=== PATIENT | female | born 1960 | race Caucasian/White ===

== ENCOUNTER → 2016-10-02 | Outpatient (CLI) | payer MEDICARE, OTHER ==
[2016-10-02 11:54] VITALS: BMI 31.6
== END | disposition home or self-care (01) ==
LOC: MNTWWP 08:50
PROVIDERS: ATTEND Family Medicine
DX: Z71.3 Dietary counseling and surveillance (principal); Z68.30 Body mass index [BMI] 30.0-30.9, adult
CPT/HCPCS: 97802

== ENCOUNTER → 2017-02-08 | Outpatient (CLI) | payer MEDICARE, OTHER ==
--- NOTE | 2017-02-08 14:02 | XR ---
EXAMINATION TYPE: XR chest 2V DATE OF EXAM: 02/08/2017 COMPARISON: 07/10/2016 TECHNIQUE: PA and lateral views submitted. HISTORY: Cough FINDINGS: The lungs are clear and there is no pneumothorax, pleural effusion, or focal pneumonia. Hyperinflat ion suggests COPD. Diffuse osteopenia noted. No overt failure. Hypertrophic change of the spine. IMPRESSION: 1. No acute process. Correlate for COPD.
== END | disposition home or self-care (01) ==
LOC: RADXRMAIN 12:57
PROVIDERS: ATTEND Physician Assistant
DX: R05 Cough (principal)
CPT/HCPCS: 71020

== ENCOUNTER → 2017-03-23 | Outpatient (CLI) | payer MEDICARE, OTHER ==
--- NOTE | 2017-03-26 09:38 | MM ---
Reason for exam: follow-up at short interval from prior study. Last mammogram was performed 1 year ago. History: Patient is postmenopausal and has history of other cancer at age 26. Benign left US cyst aspiration of the left breast, March 06, 2007. Took estrogen for 6 months beginning at age 44. Physical Findings: Nurse did not find any significant physical abnormalities on exam. MG 3D Diag Mammo W/Cad GINGER Bilateral CC and MLO view(s) were taken. Prior study comparison: March 20, 2016, bilateral MG 3d screening mammo w/cad. May 18, 2014, bilateral MG screening mammo w CAD. The breast tissue is extremely dense which could obscure a lesion on mammography. Previous mammotome biopsy in the left breast. No significant new findings when compared with previous films. These results were verbally communicated with the patient and result sheet given to the patient on 03/23/17. ASSESSMENT: Benign, BI-RAD 2 RECOMMENDATION: Routine screening mammogram of both breasts in 1 year.
== END | disposition home or self-care (01) ==
LOC: RADMAMWWP 08:16
PROVIDERS: ATTEND Family Medicine
DX: R92.8 Other abnormal and inconclusive findings on diagnostic imaging of breast (principal)
CPT/HCPCS: G0204; G0279

== ENCOUNTER 2017-03-31 06:11 | Inpatient (IN) | payer MEDICARE, MEDICAID ==
[2017-03-31] MEDS ORDERED: LORazepam 2 MG/ML SYRINGE IM STA (07:58)
[2017-03-31] MEDS ORDERED: diphenhydrAMINE 50 MG CAP PO STA (07:58)
--- NOTE | 2017-03-31 08:07 | ED ---
General Adult HPI - General Chief complaint: Psychiatric Symptoms Stated complaint: Mental Health Time Seen by Provider: 03/31/17 07:24 Source: patient, RN notes reviewed, old records reviewed Mode of arrival: ambulatory Limitations: altered mental status - History of Present Illness Initial comments: This is a 56-year-old female here for evaluation of psychiatric disease, patient has known bipolar disorder, states she is having manic event. Patient states she is taking all medications as prescribed, not doing any other illegal drugs or alcohol. States she has not slept in days, she is very agitated and fidgety, states she is seeing people who aren't there, she does state is following up with [facility] as directed and a been trying to an active plan at this at this point is not working. Patient is not homicidal or suicidal. - Related Data Home Medications Medication Instructions Recorded Confirmed fentaNYL 50MCG/HR PATCH [Duragesic 1 patch TRANSDERM Q72H 02/10/16 07/09/16 50MCG/HR] oxyCODONE-APAP 10-325MG [Percocet 1 tab PO QID PRN 02/10/16 07/09/16 10-325 mg] ALPRAZolam [Xanax] 0.5 mg PO TID PRN 07/09/16 07/09/16 ALPRAZolam [Xanax] 1 mg PO DAILY@1200 07/09/16 07/09/16 Lurasidone HCl [Latuda] 20 mg PO PC-SUPPER 07/09/16 07/09/16 OXcarbazepine [Trileptal] 600 mg PO BID 07/09/16 07/09/16 Simvastatin [Zocor] 20 mg PO HS 07/09/16 07/09/16 traZODone HCL [Desyrel] 250 mg PO HS 07/09/16 07/09/16 Previous Rx's Medication Instructions Recorded Escitalopram [Lexapro] 20 mg PO DAILY@1200 #30 tab 02/16/16 Loratadine [Claritin] 10 mg PO DAILY #30 tab 02/16/16 Lurasidone [Latuda] 80 mg PO PC-SUPPER #30 tab 02/16/16 Famotidine [Pepcid] 20 mg PO BID tab 07/11/16 Nicotine 14Mg/24Hr Patch [Habitrol] 1 patch TRANSDERM DAILY #30 patch 07/11/16 Allergies Allergy/AdvReac Type Severity Reaction Status Date / Time No Known Allergies Allergy Verified 03/31/17 06:18 Review of Systems ROS Statement: Those systems with pertinent positive or pertinent negative responses have been documented in the HPI. ROS Other: All systems not noted in ROS Statement are negative. Past Medical History Past Medical History: Asthma, Hyperlipidemia Additional Past Medical History / Comment(s): MRSA, BIPOLAR, PANIC DISORDER, BACK PAIN, ARTHRITIS, HEAD INJURY, vertigo, bradycardia, pituatary tumor (benign ) "couple of years ago. History of Any Multi-Drug Resistant Organisms: MRSA Date of last positivie culture/infection: 2014 MDRO Source:: FACE/EARS Past Surgical History: Adenoidectomy, Section, Tonsillectomy Additional Past Surgical History / Comment(s): D&C, EYE, WRIST RIGHT Past Anesthesia/Blood Transfusion Reactions: No Reported Reaction Past Psychological History: Anxiety, Bipolar, Depression, Panic Disorder Smoking Status: Current every day smoker Past Alcohol Use History: None Reported Past Drug Use History: None Reported - Past Family History Mother History Unknown: Yes General Exam Limitations: altered mental status General appearance: alert, in no apparent distress Head exam: Present: atraumatic, normocephalic, normal inspection Eye exam: Present: normal appearance, PERRL, EOMI. Absent: scleral icterus, conjunctival injection, periorbital swelling ENT exam: Present: normal exam, mucous membranes moist Neck exam: Present: normal inspection. Absent: tenderness, meningismus, lymphadenopathy Respiratory exam: Present: normal lung sounds bilaterally. Absent: respiratory distress, wheezes, rales, rhonchi, stridor Cardiovascular Exam: Present: regular rate, normal rhythm, normal heart sounds. Absent: systolic murmur, diastolic murmur, rubs, gallop, clicks GI/Abdominal exam: Present: soft, normal bowel sounds. Absent: distended, tenderness, guarding, rebound, rigid Extremities exam: Present: normal inspection, full ROM, normal capillary refill. Absent: tenderness, pedal edema, joint swelling, calf tenderness Back exam: Present: normal inspection Neurological exam: Present: alert, oriented X3, CN II-XII intact Psychiatric exam: Present: normal affect, normal mood Skin exam: Present: warm, dry, intact, normal color. Absent: rash Course Vital Signs 03/31/17 06:15 Temperature 98.7 F Pulse Rate 84 Respiratory 18 Rate Blood Pressure 146/71 O2 Sat by Pulse 95 Oximetry - Reevaluation(s) Reevaluation #1: 03/31/17 08:07 Patient's medically clear for psychiatric Medical Decision Making - Medical Decision Making 56 female seen and evaluated with psychiatry, will admit for psychiatric evaluation and treatment Disposition Clinical Impression: Psychosis, Acute psychosis, Bipolar disorder, Elham (monopolar) single episode or unspecified Disposition: ADMITTED IP TO THIS [facility] Condition: Fair Referrals: Pa Sanders MD [Primary Care Provider] - 1-2 days
[2017-03-31 11:32] LABS: Basophils % (A) 1 %; CH 30.9; CHCM 33.7; Eosinophils # (A) 0.2 k/uL (0-0.7); Eosinophils % (A) 3 %; HCT 42.7 % (34.0-46.0); HDW 2.52; HGB 14.6 gm/dL (11.4-16.0); Luc # (Auto) 0.18; Luc % (Auto) 3; Lymphocytes # (A) 2.3 k/uL (1.0-4.8); Lymphocytes % (A) 36 %; MCH 31.5 pg (25.0-35.0); MCHC 34.2 g/dL (31.0-37.0); Mean Platelet Volume 6.5; Monocytes # (A) 0.5 k/uL (0-1.0); Monocytes % (A) 7 %; Neutrophils # (A) 3.2 k/uL (1.3-7.7); Neutrophils % (A) 50 %; RBC 4.63 m/uL (3.80-5.40); RDW 12.7 % (11.5-15.5); WBC 6.4 k/uL (3.8-10.6); WBC (Perox) 6.63
[2017-03-31 11:58] LABS: MCV 92.1 fL (80.0-100.0)
[2017-03-31 12:01] LABS: ALT 46 U/L (9-52); AST 39 U/L (14-36); Alkaline Phosphatase 62 U/L (38-126); Anion Gap 7 mmol/L; Blood Urea Nitrogen 16 mg/dL (7-17); Calcium 9.4 mg/dL (8.4-10.2); Carbon Dioxide 27 mmol/L (22-30); Chloride 105 mmol/L (98-107); Glucose 95 mg/dL (74-99); Non-African American GFR(MDRD) >60 (>60 ml/min/1.73 sqM); Potassium 3.6 mmol/L (3.5-5.1); Sodium 139 mmol/L (137-145); Total Bilirubin 0.4 mg/dL (0.2-1.3); Total Protein 5.7 g/dL (6.3-8.2)
[2017-03-31] MEDS ORDERED: MAG HYDROX/AL HYDROX/SIMETH 30 ML CUP PO PRN (12:57)
[2017-03-31] MEDS ORDERED: ACETAMINOPHEN TAB 325 MG TAB PO PRN (12:57)
[2017-03-31] MEDS ORDERED: MAGNESIUM HYDROXIDE 2,400 MG/10 ML CUP PO PRN (12:57)
[2017-03-31] MEDS ORDERED: traZODone HCL 100 MG TAB PO SCH (21:00)
[2017-03-31] MEDS: OXcarbazepine 300 MG TAB PO SCH (22:51)
[2017-03-31] MEDS: HYDROcodone/APAP 5-325MG 1 EACH TAB PO PRN (22:51)
[2017-04-01] MEDS: OXcarbazepine 300 MG TAB PO SCH ×2 (11:06→20:53)
[2017-04-01] MEDS: ESCITALOPRAM 10 MG TAB PO SCH (11:06)
[2017-04-01] MEDS: LURASIDONE 40 MG TAB PO SCH (11:06)
[2017-04-01] MEDS: NICOTINE 14MG/24HR PATCH TRANSDERM SCH (11:06)
[2017-04-01] MEDS: PANTOPRAZOLE 40 MG TABLET PO SCH (11:07)
[2017-04-01] MEDS: ATORVASTATIN 10 MG TAB PO SCH (11:07)
[2017-04-01] MEDS: HYDROcodone/APAP 5-325MG 1 EACH TAB PO PRN (11:07)
--- NOTE | 2017-04-01 17:49 | P.CONS ---
History of Present Illness - Reason for Consult Consult date: 04/01/17 Advice regarding skin lesions - History of Present Illness This 56-year-old woman with a past medical history of COPD pneumonia and bipolar was admitted for psych evaluation. Patient had extensive history of polysubstance abuse. Patient is complaining of infected areas of the right foot. There is no history of fever rigors or chills. Patient has been followed by Dr. Moon Sanders In the preceding. Review of Systems REVIEW OF SYSTEMS: ENT: No diminished vision or hearing. CARDIOVASCULAR: Mentioned earlier. RESPIRATORY: As mentioned earlier. GI: No nauscea, vomiting or diarrhea. : No dysuria or retention. NERVOUS SYSTEM: No numbness or weakness. ALLERGY/IMMUNOLOGY: No asthma or hay fever. MUSCULOSKELETAL: As mentioned earlier. HEMATOLOGY/ONCOLOGY: No history of anemia. ENDOCRINE: No history of diabetes or hypothyroidism. CONSTITUTIONAL: As mentioned earlier. DERMATOLOGY: Mentioned PSYCHIATRY: Mentioned earlier. RHEUMATOLOGY: Negative. Past Medical History Past Medical History: Asthma, Hyperlipidemia Additional Past Medical History / Comment(s): MRSA, BIPOLAR, PANIC DISORDER, BACK PAIN, ARTHRITIS, HEAD INJURY, vertigo, bradycardia, pituatary tumor (benign ) "couple of years ago. History of Any Multi-Drug Resistant Organisms: MRSA Year Discovered:: 2014 MDRO Source:: FACE/EARS Past Surgical History: Adenoidectomy, Section, Tonsillectomy Additional Past Surgical History / Comment(s): D&C, EYE, WRIST RIGHT Past Anesthesia/Blood Transfusion Reactions: No Reported Reaction Past Psychological History: Anxiety, Bipolar, Depression, Panic Disorder Smoking Status: Current every day smoker Past Alcohol Use History: None Reported Past Drug Use History: None Reported - Past Family History Mother History Unknown: Yes Medications and Allergies Home Medications Medication Instructions Recorded Confirmed Type fentaNYL 50MCG/HR PATCH [Duragesic 1 patch TRANSDERM Q72H 02/10/16 03/31/17 History 50MCG/HR] oxyCODONE-APAP 10-325MG [Percocet 1 tab PO QID 02/10/16 03/31/17 History 10-325 mg] ALPRAZolam [Xanax] 1 mg PO TID 07/09/16 03/31/17 History OXcarbazepine [Trileptal] 600 mg PO BID 07/09/16 03/31/17 History Simvastatin [Zocor] 20 mg PO DAILY 07/09/16 03/31/17 History traZODone HCL [Desyrel] 300 mg PO HS 07/09/16 03/31/17 History Escitalopram [Lexapro] 10 mg PO DAILY 03/31/17 03/31/17 History Lurasidone HCl [Latuda] 120 mg PO DAILY 03/31/17 03/31/17 History Omeprazole 20 mg PO DAILY 03/31/17 03/31/17 History Allergies Allergy/AdvReac Type Severity Reaction Status Date / Time No Known Allergies Allergy Verified 03/31/17 06:18 Physical Exam Vitals: Vital Signs Pulse Resp BP 04/01/17 11:12 70 18 109/66 03/31/17 22:53 68 126/66 03/31/17 21:51 77 116/76 Intake and Output 04/01/17 04/01/17 04/01/17 06:59 14:59 22:59 Other: Weight 70 kg Patient Weight 04/02/17 06:59 Weight 70 kg On exam, alert and oriented x3. HEENT: Conjunctivae normal. eyes normal. NECK: No JVD. No thyroid enlargement. No LNs CARDIOVASCULAR: S1, S2 muffled. No murmur RESPIRATION: Breath sounds diminished in the bases. No rhonchi or crackles. No bronchial breathing. ABDOMEN: Soft, nontender . No guarding. no masses palpable. No ascites, No hepatosplenomegaly.Bowel sounds heard. LEGS: No edema. no swelling NERVOUS SYSTEM: Cranial N 2-12 grossly normal. Moves all 4 limbs. No focal deficits. No sensory deficit. No signs of cerebellar dysfucntion. Skin: Rash with superficial ulcers right dorsum and the left foot Joints: No active swelling. No inflammation. Lymphatic system. No LN neck axilla or groin. Results CBC & Chem 7: 03/31/17 11:19 03/31/17 11:19 Assessment and Plan Plan: Assessment 1. Acute cellulitis of the right foot 2. Polysubstance abuse and withdrawals 3. For psych evaluation 54. COPD 5. Chronic back pain DJD history of bipolar anxiety depression Hyperlipidemia Plan In this 56-year-old woman was admitted for psych evaluation at this time I recommend to continue current medications. Also recommend short course of Bactrim. Continue the rest of the medications. We'll be the abnormal labs. Patient may be asked to follow with the primary physician. Thank you for letting us take care of this patient
[2017-04-01] MEDS: SULFAMETHOX-TMP 800-160MG 1 EACH TAB PO SCH (19:10)
[2017-04-01] MEDS: traZODone HCL 100 MG TAB PO SCH (20:53)
[2017-04-02] MEDS: SULFAMETHOX-TMP 800-160MG 1 EACH TAB PO SCH (08:38)
[2017-04-02] MEDS: NICOTINE 14MG/24HR PATCH TRANSDERM SCH (08:38)
[2017-04-02] MEDS: PANTOPRAZOLE 40 MG TABLET PO SCH (08:38)
[2017-04-02] MEDS: ESCITALOPRAM 10 MG TAB PO SCH (08:39)
[2017-04-02] MEDS: OXcarbazepine 300 MG TAB PO SCH ×2 (08:39→22:15)
[2017-04-02] MEDS: LURASIDONE 40 MG TAB PO SCH (08:39)
[2017-04-02] MEDS: ATORVASTATIN 10 MG TAB PO SCH (08:39)
--- NOTE | 2017-04-02 09:52 | HP ---
DATE OF SERVICE: 04/01/2017 IDENTIFYING DATA: This patient is a 56-year-old female who is admitted to the Mental Health Unit through the Emergency Room for symptoms of agitation and reported suicidal ideation. HISTORY OF PRESENT ILLNESS: The patient states she has a history of bipolar disorder. She used cocaine late Sunday night into early Sunday morning and believed it triggered a manic episode. She states that she has not been sleeping. Her appetite has been poor. She states that her mind has been "scattered." She has been experiencing excessive amount of irritability. In the emergency room last evening, she was irritable and demonstrated bizarre behavior. The patient reports she was talking to individuals that were not there. She could not seem them or hear them but believed they were there and became more agitated when there was no response. This morning, she reports feeling tired. Her energy is low. She presented to the hospital with suicidal thoughts with a plan of overdosing but states she feels safe in the hospital now. No thoughts of harming others. She is endorsing no current auditory or visual hallucinations. She is endorsing no specific delusions at this time. She feels safe. She describes a long history of anxiety, stating "people bother me." When asked if she has panic attacks, she says yes. She will have episodes where she will be fearful and jittery. She is on prescribed psychotropic medications as noted below. She reports she has been compliant with those. She feels that this was triggered by her recent use of cocaine. She reports having no firearms at home. PAST PSYCHIATRIC HISTORY: She has had numerous inpatient psychiatric admissions. This is her fifth since 2013 in terms of suicide attempt, she states "too many to count." She states that she has had several overdoses and has tried to harm herself in traffic. She works with Dr. Mitlon for medication management and sees a therapist with [facility]. The is currently prescribed Trileptal 600 mg twice daily, Latuda 120 mg daily, Trazodone 300 mg at bedtime, Lexapro 10 mg daily. She has been on numerous other psychotropics in the past. She cannot recall a list at this time. She also states she is prescribed Xanax 1 mg 3 times daily. PAST MEDICAL HISTORY: GERD. She takes Protonix. Hyperlipidemia which is treated with Lipitor. She states that she has chronic pain and is on fentanyl and oxycodone. ALLERGIES: No known drug allergies. CHEMICAL DEPENDENCY HISTORY: Cocaine use disorder. She has been struggling with this for numerous years. She states it is her drug of choice. She used this is the form of crack Sunday night into Sunday morning. She did previously have a history of marijuana use but reports no recent marijuana use. No use of alcohol reported or any other illicit drugs. She has been in rehab approximately 5 times in the past. FAMILY PSYCHIATRIC HISTORY: A grandfather committed suicide, a cousin committed suicide, another cousin is known to have bipolar disorder. FAMILY CHEMICAL DEPENDENCY HISTORY: Unknown. LEGAL HISTORY: She has recently gone through [facility] for stealing a pack of hot dogs last year in May. She states she is currently on a reporting probation and she checks in every 2 weeks. SOCIAL HISTORY: The patient is 56 years old, she is . She has one adult daughter. The patient lives alone. She is on a disability income. She graduated high school. 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 No history of service. She has 2 brothers. She is originally from the [facility]. ABUSE HISTORY: Unknown. MENTAL STATUS EXAM: The patient is a disheveled female appearing her stated age. Hygiene fair. She is dressed in her own clothing. A pajama top and bottom. Eye contact is intermittent. Speech is fluent, spontaneous. She is verbose but easily directed. She maintains a bland affect. She reports feeling tired, sad, and irritable. She describes frequent anxiety. She demonstrates no verbal or physical aggressiveness. Thought process can be circumstantial. She demonstrates no tangential thinking, loose associations or flight of ideas today. She is endorsing no current auditory visual hallucinations are specific delusions. There is no overt evidence of psychosis at this time. She does not appear overtly manic as she is seated in her chair during our session. She is oriented to person, place, month, year. She names the day of the week incorrectly as Sunday. She is able to spell world forwards and backwards. No abnormal involuntary movements observed. STRENGTHS: Housing, income. WEAKNESSES: Ongoing use of cocaine, intellect average. IMPRESSION: 1. Bipolar 1 disorder, most recent depressed, cocaine use disorder, rule out substance induced mood symptoms, history of cannabis use disorder in reported remission. 2. Reported chronic pain, hyperlipidemia, gastroesophageal reflux disease. 3. Psychosocial dysfunction due to recent use of cocaine. PLAN: The patient has been admitted to the mental health unit. She is here voluntarily. We reviewed her presenting symptoms and medications options. We decided to continue her on the outpatient psychotropic medication regimen including Latuda 120 mg daily, Trileptal 600 mg twice daily. Her Trazodone will be reduced to 100 mg at bedtime, continue Lexapro 10 mg daily. We will use Ativan as needed in lieu of Xanax. We did reduce her opiates to the mental health unit protocol. We will monitor her for safety. Encourage her participate in the milieu. She will be seen by Internal Medicine for routine history and physical. Social Work will meet with the patient to complete a psychosocial assessment and begin discharge planning. Vital signs reviewed. Trileptal level was ordered. MTDD
[2017-04-02 10:04] LABS: Appearance,Urine Cloudy (Clear); Bacteria,Urine Rare /hpf; Bilirubin,Urine Negative (Negative); Glucose,Urine (UA) Negative (Negative); Ketones,Urine Negative (Negative); Leukocyte Esterase,Urine Small (Negative); Mucus,Urine Rare /hpf; Nitrite,Urine Negative (Negative); PH, Urine 6.5 (5.0-8.0); Particle Count 9635; Protein,Urine Negative (Negative); RBC,Urine 2 /hpf (0-5); Specific Gravity,Urine 1.006 (1.001-1.035); Squamous Epithelial Cell,Urine 16 /hpf (0-4); UA Billing (MACRO vs. MICRO) MICRO; Urobilinogen,Urine <2.0 mg/dL (<2.0); WBC,Urine 5 /hpf (0-5)
[2017-04-02] MEDS: LORazepam 1 MG TAB PO PRN ×2 (10:34→16:31)
[2017-04-02] MEDS: HYDROcodone/APAP 5-325MG 1 EACH TAB PO PRN ×2 (10:35→16:31)
[2017-04-02] MEDS: MULTIVITAMINS, THERA 1 EACH TAB PO SCH (12:27)
--- NOTE | 2017-04-02 19:07 | PN ---
DATE OF SERVICE: 04/02/17 CHIEF COMPLAINT: The patient had relapsed into using cocaine. She used for about 12 hours straight one week ago. After that, she started having increased manic symptoms with decreased need for sleep, irritability, racing thoughts, bizarre behavior and impulsivity. INTERVAL HISTORY: The patient has been doing fair. She had a quiet evening last night. She said that she slept for about six hours last night with some broken sleep. She has been up and about today. Overall, vital signs have been stable without any increase in blood pressure or pulse. She has not shown any significant signs of substance withdrawal. She did not attend groups yesterday but did attend group today. She says she is feeling much better today than she was yesterday. She feels that her thoughts are clear and she is functioning better. She notes that two weeks ago when she saw her outpatient psychiatrist, Dr. Milton, he had increased her Latuda to 120 mg a day. Other medications were left the same. It is noted that when she was hospitalized her in 2016, there was some concern that Latuda at 120 mg a day may be causing EPS with restlessness. The patient states that she has not had restlessness since the current increase. Her other medications are essentially the same as they had been . the patient reports today that her thoughts are clear. She feels that she is not having significant manic symptoms at present. She has not had change in her general health. She tolerates psychotropic medications. MENTAL STATUS: The patient was dressed in Pajamas. Eye contact was fair. She sat in slumped posture. Psychomotor activity was slow. Speech was monotone. She answered questions with direct responses. Her thoughts were clear. Her affect was somewhat blunted. She did smile a little. Her mood was reserved. She did not appear to be significantly distress. ASSESSMENT AND PLAN: I will continue current diagnosis and treatment plan. We will continue to make efforts to engage the patient in individual and group therapeutic activities. We will continue psychotropic medications the same including Lexapro 10 mg a day, Latuda 120 mg a day, Trileptal 600 mg twice a day. Trazodone 100 mg at bedtime and Ativan 1 mg three times a day as needed. She is also on Hydrocodone 5 mg three times a day as needed. Her only medication concern at present was that her Trazodone dose had been reduced from 300 mg that she was taking at home down to 100 mg a day. We discussed that she seemed to be sleeping fairly well in spite of that reduction. We discussed the importance of trying to keep her medications simplified as much as possible given that she is on a complicated set of psychotropic medications. We discussed discharge planning issues. We will continue to focus on stabilization and discharge planning. ALIA
[2017-04-02] MEDS: traZODone HCL 100 MG TAB PO SCH (22:15)
[2017-04-03] MEDS: HYDROcodone/APAP 5-325MG 1 EACH TAB PO PRN ×3 (02:55→21:15)
[2017-04-03] MEDS: LORazepam 1 MG TAB PO PRN ×2 (02:56→08:42)
[2017-04-03] MEDS: LURASIDONE 40 MG TAB PO SCH (08:42)
[2017-04-03] MEDS: SULFAMETHOX-TMP 800-160MG 1 EACH TAB PO SCH (08:42)
[2017-04-03] MEDS: ESCITALOPRAM 10 MG TAB PO SCH (08:42)
[2017-04-03] MEDS: ATORVASTATIN 10 MG TAB PO SCH (08:42)
[2017-04-03] MEDS: NICOTINE 14MG/24HR PATCH TRANSDERM SCH (08:42)
[2017-04-03] MEDS: OXcarbazepine 300 MG TAB PO SCH ×2 (08:42→21:14)
[2017-04-03] MEDS: PANTOPRAZOLE 40 MG TABLET PO SCH (08:42)
--- NOTE | 2017-04-03 11:22 | P.PN ---
Subjective Principal diagnosis: Reassessing cellulitis to right foot patient states improvement of swelling mild erythema. Patient noted to be wheezing albuterol and Spiriva started Objective - Vital Signs Vital signs: Vital Signs Temp 97.6 F 04/03/17 07:17 Pulse 64 04/03/17 08:47 Resp 16 04/03/17 08:47 BP 112/72 04/03/17 08:47 Pulse Ox 96 03/31/17 13:06 - Constitutional General appearance: Present: mild distress - EENT Eyes: Present: PERRLA Ears: bilateral: normal - Neck Neck: Present: normal ROM - Respiratory Respiratory: right: wheezing - Cardiovascular Rhythm: regular - Gastrointestinal General gastrointestinal: Present: soft - Integumentary Integumentary Comment(s): Mild erythema right foot - Neurologic Neurologic: Present: CNII-XII intact - Musculoskeletal Musculoskeletal: Present: gait normal - Labs CBC & Chem 7: 03/31/17 11:19 03/31/17 11:19 Assessment and Plan Plan: Assessment Cellulitis right foot polysubstance abuse and withdrawals COPD chronic back pain opioid dependence History of bipolar anxiety/depression Hyperlipidemia Plan Continue Bactrim for cellulitis Albuterol and Spiriva initiated COPD
[2017-04-03] MEDS: MULTIVITAMINS, THERA 1 EACH TAB PO SCH (12:55)
[2017-04-03] MEDS: POLYETHYLENE GLYCOL 3350 17 GM POWD.PACK PO SCH (14:34)
--- NOTE | 2017-04-03 15:05 | PN ---
DATE OF SERVICE: 04/03/2017 CHIEF COMPLAINT: The patient had relapse into using cocaine. She used for about 12 hours straight one week ago. After that, she started having increased manic symptoms with decreased need for sleep, irritability, racing thoughts, bizarre behavior and impulsivity. INTERVAL HISTORY: Patient has been doing fair. She had a quiet evening last night. She slept well. Today, she has been up and about. She says she is tired today. She feels a little down and slowed down. She has been out, though , she has not done so much for herself in terms of self care. Yesterday, she was brighter, more active and she had much better self-care. Today she said she is just tired and slowed down. She has not had change in her general health. She tolerates the psychotropic medications. MENTAL STATUS: Patient was dressed in pajamas, eye contact fair, psychomotor activity slowed. She sat in a slumped posture, speech was monotone. She had a listless manner. Her affect was blunted. Mood reserved. She seemed somewhat distressed. ASSESSMENT: I will continue the current diagnosis and treatment plan. It is noteworthy that the patient presents this afternoon, somewhat in the manner as I saw her earlier in the day yesterday. On the other hand, yesterday as the day went on, she seemed to show improvement. I had discussed treatment issues with the patient. At this point, I will reduce her Ativan to 0.5 mg 3 times a day. Other psychotropic medications will continue the same. Will continue to focus on stabilization and discharge planning. ALIA
[2017-04-03] MEDS: LORazepam 0.5 MG TAB PO PRN (16:30)
[2017-04-03] MEDS: ALBUTEROL INHALER 60 PUFF/8 GM INHALER INHALATION PRN (19:30)
[2017-04-03] MEDS: traZODone HCL 100 MG TAB PO SCH (21:14)
[2017-04-04] MEDS: LORazepam 0.5 MG TAB PO PRN ×3 (00:37→16:38)
[2017-04-04] MEDS: OXcarbazepine 300 MG TAB PO SCH ×2 (08:57→20:59)
[2017-04-04] MEDS: PANTOPRAZOLE 40 MG TABLET PO SCH (08:58)
[2017-04-04] MEDS: ESCITALOPRAM 10 MG TAB PO SCH (08:58)
[2017-04-04] MEDS: NICOTINE 14MG/24HR PATCH TRANSDERM SCH (08:58)
[2017-04-04] MEDS: ATORVASTATIN 10 MG TAB PO SCH (08:58)
[2017-04-04] MEDS: LURASIDONE 40 MG TAB PO SCH (08:58)
[2017-04-04] MEDS: POLYETHYLENE GLYCOL 3350 17 GM POWD.PACK PO SCH (08:59)
[2017-04-04] MEDS: SULFAMETHOX-TMP 800-160MG 1 EACH TAB PO SCH (08:59)
[2017-04-04] MEDS: TIOTROPIUM 18 MCG/PUFF INHALER INHALATION SCH (09:01)
[2017-04-04] MEDS: HYDROcodone/APAP 5-325MG 1 EACH TAB PO PRN ×2 (09:04→16:38)
[2017-04-04] MEDS: MULTIVITAMINS, THERA 1 EACH TAB PO SCH (13:00)
[2017-04-04] MEDS: ALBUTEROL INHALER 60 PUFF/8 GM INHALER INHALATION PRN ×2 (14:02→21:04)
--- NOTE | 2017-04-04 14:48 | PN ---
DATE OF SERVICE: 04/04/2017 CHIEF COMPLAINT: The patient had relapse into using cocaine. She used for about 12 hours straight one week prior to admission. After that she started having increased manic symptoms with decreased need for sleep, irritability, racing thoughts, bizarre behavior and impulsivity. INTERVAL HISTORY: The patient has been doing fairly well. She was down in her mood yesterday. She was more withdrawn. She was not making effort to attend groups. She was isolating. She slept well last night. Today she is up and dressed. She reports doing much better in her mood. She acknowledges that she tends to have mood swings with ups and downs. She cannot often identify what can cause change in her mood. In regards to substance use issues the patient said that she had been doing fairly well and was making progress due to the requirements of drug court. She said that unfortunately somewhat had made a concerted effort to encourage her to use, which set her off on her 12 hour binge. She notes clear thoughts today. She feels her mood is in a normal range. She is not having hypomanic or manic symptoms. She does not feel down, depressed or anxious. 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 She has not had change in her general health. She tolerates her psychotropic medications. MENTAL STATUS EXAM: Patient gave good eye contact. Psychomotor activity and speech were normal. Her thoughts were clear. She was spontaneous and interactive. Her affect was in a reasonable range. Her mood was even. She did not appear to be distressed. ASSESSMENT: I will continue the current diagnosis and treatment plan. I will continue psychotropic medications the same. Patient requests that when she is discharged that she return to using Xanax rather than the Ativan. I had an extensive discussion with the patient regarding her use of benzodiazepines in general. I strongly encouraged her to work with her psychiatrist to move away from benzodiazepines. There are significant risks for her not only including motor and memory impairment which are the most common side effects from benzodiazepines but also their use significantly increases her risk for relapse to other abusive substances. In addition, she should moves towards getting on a program to eventually get off opioid pain medications as well. The same issues are involved with opioids as with the benzodiazepines. She has a high likelihood of being able to manage pain issues with nonopioid interventions though she would likely need to have some fairly focused effort and support in alternative treatment options. Again, the continued use of opioids put her at high risk for relapse to abusive substances. ALIA
[2017-04-04] MEDS: traZODone HCL 100 MG TAB PO SCH (20:59)
[2017-04-05] MEDS: LORazepam 0.5 MG TAB PO PRN ×2 (02:35→10:27)
[2017-04-05] MEDS: HYDROcodone/APAP 5-325MG 1 EACH TAB PO PRN (02:35)
[2017-04-05 02:40] VITALS: TEMP 97.5
[2017-04-05] MEDS: ESCITALOPRAM 10 MG TAB PO SCH (08:52)
[2017-04-05] MEDS: NICOTINE 14MG/24HR PATCH TRANSDERM SCH (08:52)
[2017-04-05] MEDS: PANTOPRAZOLE 40 MG TABLET PO SCH (08:52)
[2017-04-05] MEDS: OXcarbazepine 300 MG TAB PO SCH (08:52)
[2017-04-05] MEDS: ATORVASTATIN 10 MG TAB PO SCH (08:53)
[2017-04-05] MEDS: POLYETHYLENE GLYCOL 3350 17 GM POWD.PACK PO SCH (08:53)
[2017-04-05] MEDS: SULFAMETHOX-TMP 800-160MG 1 EACH TAB PO SCH (08:53)
[2017-04-05 09:00] VITALS: BP 112/64; PULSE 62; RESP 16
[2017-04-05] MEDS: TIOTROPIUM 18 MCG/PUFF INHALER INHALATION SCH (09:00)
[2017-04-05] MEDS: ALBUTEROL INHALER 60 PUFF/8 GM INHALER INHALATION PRN (09:00)
[2017-04-05] MEDS: LURASIDONE 40 MG TAB PO SCH (10:27)
[2017-04-05] MEDS: MULTIVITAMINS, THERA 1 EACH TAB PO SCH (12:23)
--- NOTE | 2017-04-06 22:24 | DS ---
DATE OF ADMISSION: 03/31/2017 DATE OF ADMISSION: 04/05/2017 ADMISSION AND DISCHARGE DIAGNOSES: 1. Bipolar affective disorder, most recent depressed. 2. Cocaine use disorder. 3. Rule out substance-induced mood symptoms. 4. History of cannabis use disorder, in reported remission. 5. Chronic pain. 6. Hyperlipidemia. 7. Gastroesophageal reflux disease. HISTORY OF PRESENTING ILLNESS: The patient had relapsed into using cocaine for about a 12-hour period 5 days prior to admission. She started having increased manic symptoms with decreased need for sleep, irritability, racing thoughts, bizarre behavior and impulsivity. On admission she had mixed symptoms of carol and depression. She presented to the emergency room with irritability and demonstrated bizarre behavior. She was responding to internal stimuli. She had periods of depressed mood with thoughts of suicide. This was her fifth psychiatric hospitalization since 2012. Current medications included Trileptal, Latuda, Trazodone and Lexapro. She had just seen her outpatient psychiatrist, Dr. Milton, who had increased her Latuda to 120 mg a day. She was admitted for further evaluation. PAST MEDICAL HISTORY: As per medical consultation of Dr. Garcia. MENTAL STATUS EXAM: The patient was disheveled. Hygiene fair. Eye contact intermittent. Speech was fluent and spontaneous. She was verbose, though easily directed. Affect was bland. Thought process was circumstantial. There was no tangential thinking, loose association or flight of ideas. There was no overt evidence of psychosis. She was not appearing overtly manic. Orientation was fair. PHYSICAL EXAM: As per medical consultation of Dr. Garcia. COURSE OF HOSPITALIZATION: Patient was admitted for comprehensive medical, psychiatric and psychosocial evaluation. Patient was engaged in individual and group therapeutic activities. She was continued on outpatient medications, including Latuda 120 mg a day, Lexapro 10 mg a day, Trileptal 600 mg twice a day and Desyrel. Her Desyrel dose was reduced to 100 mg at bedtime. She had previously been on Xanax. She was switched to Ativan 0.5 mg 3 times a day p.r.n. The dose was ultimately reduced to b.i.d. p.r.n. Given that she had just had her Latuda increased, the decision was made to continue her on that dose and see if she shows adequate response. During her hospitalization, the patient did fairly well. She had some days where she did not function too well; she would not get dressed; she would isolate. She did not attend groups. She did not socialize much with others. Generally she would come out in the day area and seem to wander without much purpose. Other days she was able to organize herself to get dressed. That seemed to be a signal for how she was functioning in other ways. During those days, her mood seemed to improve. She would go to groups. She would be more social with others. During her hospitalization, she did not demonstrate any clear indication of psychotic symptoms. She had a few periods where she showed some manic symptoms with her being talkative and mildly energized, though these periods were brief. She gradually seemed to improve from depression, which was her more predominant mood during the early part of her hospitalization. As her hospitalization progressed, she was able to actively engage in discharge planning. She was concerned about her status, given that she is followed under the drug court, and understands that she would be drug-tested. She was concerned about the issue of relapse. Patient was able to talk about her relapse. She slept fairly well through most of her hospitalization. She did not show significant withdrawal issues. It was noted that she had been on Latuda at the 120 mg dose for approximately 2 weeks. Medical records noted that in 2016 she was on Latuda 120 mg and it was felt that she was having EPS symptoms with restlessness. She did not show that issue during this stay. She did not seem to have symptoms of EPS. She showed no signs of tremor, abnormal movements or rigidity. She did not demonstrate signs of tardive dyskinesia. Throughout her hospitalization she remained stable in regards to general health issues. She cooperated in working on discharge planning. CONDITION AT DISCHARGE: Patient was stable. Mood was improved. She had a better outlook. She was not showing signs of hypomania, carol or depression. She described motivation to follow through with her psychiatric care and to remain abstinent from abusive substances. RECOMMENDATIONS AND FOLLOWUP: The patient is discharged to home. Discharge medications include: 1. Lexapro 10 mg a day. 2. Latuda 120 mg a day. 3. Trileptal 600 mg twice a day. 4. Ativan 0.5 mg twice a day. 5. Trazodone 100 mg at bedtime. She was directed to continue home medications, including Spiriva 1 puff daily, Ventolin inhaler 2 puffs 4 times a day p.r.n., using a 14 mg nicotine patch. She was also started on Bactrim DS and was to continue one daily for 7 days. It was indicated that she would also continue Percocet 10 mg one 4 times a day, fentanyl patch 50 mcg every 3 days, Zocor 20 mg a day, omeprazole 20 mg a day. I had an extensive discussion with the patient to seek referral for pain management to taper completely off opioid pain medications. In addition, my recommendation was for her to work with her outpatient psychiatrist to discontinue use of all benzodiazepines as well. She has a follow-up appointment with [facility] on 04/06 at 11 a.m. and with [facility] 04/06/2017 at 10:20 a.m. She was referred back to her primary care physician, Dr. Sanders, to be seen within 2 days. ALIA
== END 2017-04-05 12:26 | disposition home or self-care (01) | DRG 897 ==
LOC: EC 06:11 → 3MHU 12:55
PROVIDERS: ADMIT Psychiatry & Neurology Psychiatry; ATTEND Psychiatry & Neurology Psychiatry
DX: F14.288 Cocaine dependence with other cocaine-induced disorder (principal); F11.20 Opioid dependence, uncomplicated; R45.851 Suicidal ideations; L03.115 Cellulitis of right lower limb; F23 Brief psychotic disorder; G89.29 Other chronic pain; F41.0 Panic disorder [episodic paroxysmal anxiety]; F31.9 Bipolar disorder, unspecified; F12.21 Cannabis dependence, in remission; G47.9 Sleep disorder, unspecified; F41.9 Anxiety disorder, unspecified; E78.5 Hyperlipidemia, unspecified; K21.9 Gastro-esophageal reflux disease without esophagitis; M19.90 Unspecified osteoarthritis, unspecified site; M54.9 Dorsalgia, unspecified; J44.9 Chronic obstructive pulmonary disease, unspecified; F17.200 Nicotine dependence, unspecified, uncomplicated; Z86.79 Personal history of other diseases of the circulatory system; Z87.01 Personal history of pneumonia (recurrent); Z79.899 Other long term (current) drug therapy; Z86.14 Personal history of Methicillin resistant Staphylococcus aureus infection; Z87.820 Personal history of traumatic brain injury; Z86.19 Personal history of other infectious and parasitic diseases; Z91.5 Personal history of self-harm; Z81.8 Family history of other mental and behavioral disorders; Z65.3 Problems related to other legal circumstances; Z71.51 Drug abuse counseling and surveillance of drug abuser; Z86.39 Personal history of other endocrine, nutritional and metabolic disease
CPT/HCPCS: 36415; 80053; 80183; 80306; 81001; 84443; 85025; 94640; 96372; 99285

== ENCOUNTER 2017-04-15 20:04 | Emergency (ER) | payer MEDICARE, OTHER ==
[2017-04-15 20:10] VITALS: BP 142/80; PULSE 84; RESP 18; TEMP 97.2
[2017-04-15] MEDS ORDERED: KETOROLAC 60 MG/2 ML VIAL IM STA (20:15)
--- NOTE | 2017-04-15 20:16 | ED ---
Back Pain HPI - General Chief Complaint: Back Pain/Injury Stated Complaint: back pain Time Seen by Provider: 04/15/17 20:13 Source: patient, RN notes reviewed Mode of arrival: ambulatory Limitations: no limitations - History of Present Illness Initial Comments: This a 56-year-old female presents emergency Department with chief complaint of back pain. Patient states she has chronic back pain states that states she was doing some yard work and had a been in which she was putting things in she states she went to lift it felt that she strained her back. Patient states that she does take chronic pain meds is on a pain contract from Dr. Gardiner. Patient denies any bowel, bladder incontinence or retention. Patient denies any saddle anesthesias. Patient states the pain is in her mid to low back. She denies any chest pain, shortness breath, fever, chills, dysuria or hematuria. She has increased pain with range of motion is better at rest at this time. Patient is requesting a Toradol injection. - Related Data Home Medications Medication Instructions Recorded Confirmed fentaNYL 50MCG/HR PATCH [Duragesic 1 patch TRANSDERM Q72H 02/10/16 04/15/17 50MCG/HR] oxyCODONE-APAP 10-325MG [Percocet 1 tab PO QID 02/10/16 04/15/17 10-325 mg] Simvastatin [Zocor] 20 mg PO DAILY 07/09/16 04/15/17 Omeprazole 20 mg PO DAILY 03/31/17 04/15/17 Previous Rx's Medication Instructions Recorded Albuterol Inhaler [Ventolin Hfa 2 puff INHALATION RT-QID PRN puff 04/05/17 Inhaler] Escitalopram [Lexapro] 10 mg PO DAILY #30 04/05/17 LORazepam [Ativan] 0.5 mg PO BID #60 tab 04/05/17 Lurasidone [Latuda] 120 mg PO DAILY #90 tab 04/05/17 Nicotine 14Mg/24Hr Patch [Habitrol] 1 patch TRANSDERM DAILY patch 04/05/17 OXcarbazepine [Trileptal] 600 mg PO BID #120 tab 04/05/17 Tiotropium 18 Mcg/Puff [Spiriva] 1 puff INHALATION RT-DAILY inhaler 04/05/17 traZODone HCL [Desyrel] 100 mg PO HS #30 tab 04/05/17 Allergies Allergy/AdvReac Type Severity Reaction Status Date / Time No Known Allergies Allergy Verified 04/15/17 20:10 Review of Systems ROS Statement: Those systems with pertinent positive or pertinent negative responses have been documented in the HPI. ROS Other: All systems not noted in ROS Statement are negative. Past Medical History Past Medical History: Asthma, Hyperlipidemia Additional Past Medical History / Comment(s): MRSA, BIPOLAR, PANIC DISORDER, BACK PAIN, ARTHRITIS, HEAD INJURY, vertigo, bradycardia, pituatary tumor (benign ) "couple of years ago. History of Any Multi-Drug Resistant Organisms: MRSA Date of last positivie culture/infection: 2014 MDRO Source:: FACE/EARS Past Surgical History: Adenoidectomy, Section, Tonsillectomy Additional Past Surgical History / Comment(s): D&C, EYE, WRIST RIGHT Past Anesthesia/Blood Transfusion Reactions: No Reported Reaction Past Psychological History: Anxiety, Bipolar, Depression, Panic Disorder Smoking Status: Current every day smoker Past Alcohol Use History: None Reported Past Drug Use History: None Reported - Past Family History Mother History Unknown: Yes General Exam Limitations: no limitations General appearance: alert, in no apparent distress Head exam: Present: atraumatic, normocephalic, normal inspection Respiratory exam: Present: normal lung sounds bilaterally. Absent: respiratory distress, wheezes, rales, rhonchi, stridor Cardiovascular Exam: Present: regular rate, normal rhythm, normal heart sounds. Absent: systolic murmur, diastolic murmur, rubs, gallop, clicks GI/Abdominal exam: Present: soft, normal bowel sounds. Absent: distended, tenderness, guarding, rebound, rigid Extremities exam: Present: normal inspection, full ROM, normal capillary refill. Absent: tenderness, pedal edema, joint swelling, calf tenderness Back exam: Present: full ROM, tenderness (Mild tenderness of the lower thoracic lumbar region), paraspinal tenderness. Absent: vertebral tenderness Neurological exam: Present: alert, oriented X3, CN II-XII intact, reflexes normal. Absent: motor sensory deficit Course Vital Signs 04/15/17 20:08 Temperature 97.2 F L Pulse Rate 84 Respiratory 18 Rate Blood Pressure 142/80 O2 Sat by Pulse 98 Oximetry Medical Decision Making - Medical Decision Making 56-year-old female presented emergency department for exacerbation of her chronic back pain. Patient has no red flag symptoms are neurological deficits. Patient is here for a Toradol injection she is on a pain contract. Patient does have chronic pain meds at home. We discussed return parameters and follow- up Disposition Clinical Impression: Acute exacerbation of chronic low back pain Disposition: HOME SELF-CARE Condition: Stable Instructions: Chronic Back Pain (ED) Additional Instructions: Please return to the Emergency Department if symptoms worsen or any other concerns. Referrals: Pa Sanders MD [Primary Care Provider] - 1-2 days Time of Disposition: 20:16
== END 2017-04-15 20:27 | disposition home or self-care (01) ==
LOC: EC 20:04
DX: M54.5 Low back pain (principal); G89.29 Other chronic pain; E78.5 Hyperlipidemia, unspecified; F17.200 Nicotine dependence, unspecified, uncomplicated; Z79.891 Long term (current) use of opiate analgesic; Z79.899 Other long term (current) drug therapy
CPT/HCPCS: 99283; 96372; J1885

== ENCOUNTER 2017-05-13 06:09 | Emergency (ER) | payer MEDICARE, OTHER ==
--- NOTE | 2017-05-13 06:51 | ED ---
Back Pain [facility] - General Chief Complaint: Back Pain/Injury Stated Complaint: Back Pain Time Seen by Provider: 05/13/17 06:36 Source: patient Limitations: no limitations - History of Present Illness Initial Comments: This patient is a 56-year-old woman with history of chronic back pain who states that her pain seems to have been flaring up since early this morning. The patient states that she had been going to secondhand stores yesterday but does not recall doing any heavy exertion or lifting. Early this morning she started noting pain about the level of the scapula and up towards the upper part of the back. She states it feels like a spasming. She rates it severe. It has become constant. The patient states that she tried pressing her back against a wall and she has also used her home medications without much relief. The pain is worse with certain positions. Patient denies any associated symptoms. MD Complaint: back pain -: hour(s) Similar Symptoms Previously: Yes Place: home Radiation: none Severity: severe Quality: other (Spasming) Consistency: constant Improves With: none Worsens With: movement Associated Symptoms: denies other symptoms - Related Data Home Medications Medication Instructions Recorded Confirmed fentaNYL 50MCG/HR PATCH [Duragesic 1 patch TRANSDERM Q72H 02/10/16 05/13/17 50MCG/HR] oxyCODONE-APAP 10-325MG [Percocet 1 tab PO QID 02/10/16 05/13/17 10-325 mg] Simvastatin [Zocor] 20 mg PO DAILY 07/09/16 05/13/17 Omeprazole 20 mg PO DAILY 03/31/17 05/13/17 Previous Rx's Medication Instructions Recorded Albuterol Inhaler [Ventolin Hfa 2 puff INHALATION RT-QID PRN puff 04/05/17 Inhaler] Escitalopram [Lexapro] 10 mg PO DAILY #30 04/05/17 LORazepam [Ativan] 0.5 mg PO BID #60 tab 04/05/17 Lurasidone [Latuda] 120 mg PO DAILY #90 tab 04/05/17 Nicotine 14Mg/24Hr Patch [Habitrol] 1 patch TRANSDERM DAILY patch 04/05/17 OXcarbazepine [Trileptal] 600 mg PO BID #120 tab 04/05/17 Tiotropium 18 Mcg/Puff [Spiriva] 1 puff INHALATION RT-DAILY inhaler 04/05/17 traZODone HCL [Desyrel] 100 mg PO HS #30 tab 04/05/17 Allergies Allergy/AdvReac Type Severity Reaction Status Date / Time No Known Allergies Allergy Verified 04/15/17 20:21 Review of Systems ROS Statement: Those systems with pertinent positive or pertinent negative responses have been documented in the HPI. ROS Other: All systems not noted in ROS Statement are negative. Constitutional: Denies: fever, chills, weakness Respiratory: Denies: cough, dyspnea Cardiovascular: Denies: chest pain, palpitations Gastrointestinal: Denies: abdominal pain, nausea, vomiting Musculoskeletal: Reports: as per HPI, back pain Skin: Denies: rash Neurological: Denies: headache, weakness, numbness, paresthesias Past Medical History Past Medical History: Asthma, Hyperlipidemia Additional Past Medical History / Comment(s): MRSA, BIPOLAR, PANIC DISORDER, BACK PAIN, ARTHRITIS, HEAD INJURY, vertigo, bradycardia, pituatary tumor (benign ) "couple of years ago. History of Any Multi-Drug Resistant Organisms: MRSA Date of last positivie culture/infection: 2014 MDRO Source:: FACE/EARS Past Surgical History: Adenoidectomy, Section, Tonsillectomy Additional Past Surgical History / Comment(s): D&C, EYE, WRIST RIGHT Past Anesthesia/Blood Transfusion Reactions: No Reported Reaction Past Psychological History: Anxiety, Bipolar, Depression, Panic Disorder Smoking Status: Current every day smoker Past Alcohol Use History: None Reported Past Drug Use History: None Reported - Past Family History Mother History Unknown: Yes General Exam Limitations: no limitations General appearance: alert, in no apparent distress Head exam: Present: atraumatic, normocephalic Eye exam: Present: normal appearance. Absent: scleral icterus, conjunctival injection Neck exam: Present: normal inspection, full ROM Respiratory exam: Present: normal lung sounds bilaterally. Absent: respiratory distress, wheezes, rales, rhonchi, stridor Cardiovascular Exam: Present: regular rate, normal rhythm, normal heart sounds. Absent: systolic murmur, diastolic murmur, rubs, gallop Back exam: Present: normal inspection, tenderness, paraspinal tenderness (The patient does have marked tenderness of the muscles the left side of the mid back approaching the scapula. The patient also has increased tone and spasticity versus a contralateral side. No bony tenderness or deformity.). Absent: vertebral tenderness Skin exam: Present: warm, dry, intact, normal color. Absent: rash Course Vital Signs 05/13/17 06:13 Temperature 97.3 F L Pulse Rate 60 Respiratory 18 Rate Blood Pressure 112/78 O2 Sat by Pulse 95 Oximetry Disposition Clinical Impression: Musculoskeletal back pain Disposition: HOME SELF-CARE Condition: Good Instructions: Chronic Back Pain (ED) Referrals: None,Stated [Primary Care Provider] - 1-2 days
[2017-05-13] MEDS ORDERED: KETOROLAC 30 MG/ML 1 ML VIAL IM STA (06:53)
[2017-05-13 07:01] VITALS: BP 137/75; PULSE 62; RESP 16; TEMP 98
== END 2017-05-13 07:10 | disposition home or self-care (01) ==
LOC: EC 06:09
DX: M54.6 Pain in thoracic spine (principal); E78.5 Hyperlipidemia, unspecified; F17.200 Nicotine dependence, unspecified, uncomplicated; Z79.891 Long term (current) use of opiate analgesic; Z79.899 Other long term (current) drug therapy
CPT/HCPCS: 99283; 96372; J1885

== ENCOUNTER → 2017-07-19 | Outpatient (CLI) | payer MEDICARE, OTHER ==
--- NOTE | 2017-07-19 14:11 | MR ---
EXAMINATION TYPE: MR lumbar spine wo con DATE OF EXAM: 07/19/2017 COMPARISON: MRI lumbar spine June 30, 2015 HISTORY: Disc degeneration, Low back pain TECHNIQUE: Multiplanar, multisequence imaging of the lumbar spine is performed without IV contrast. FINDINGS: Sagittal images of the lumbar spine show vertebral body heights and alignment to appear sat isfactory. Multilevel disc desiccation is redemonstrated. There is redemonstration of advanced disc space narrowing with moderate anterior spurring L1-L2 level. There is redemonstration of advanced dis c space narrowing with moderate anterior spurring and heterogeneous increased T1 and T2 signal consis tent with Modic type II degenerative change centered L4-L5 level. There is a moderate to advanced dis c space narrowing with posterior disc herniation L5-S1 level redemonstrated. Additional smaller poste rior disc herniations are noted L1-L2 and L4-L5 levels on sagittal images. No significant change from prior. The conus medullaris is stable in position ending inferior T12 level. Additional heterogeneou s endplate changes are present. Axial images show T12-L1 level to appear within normal limits. Axial images at L1-L2 level show moderate broad disc bulge effacing anterior thecal sac with persiste nt mild bilateral anterior inferior neural foraminal narrowing. No significant change from prior stud y is seen. Axial images at L2-L3 level are felt within normal normal limits. Axial images at L3-L4 level show mild facet degenerative changes and ligamentum flavum hypertrophy mi ldly effacing posterior lateral thecal sac not significantly changed from prior. The bilateral neural foramina are patent. Axial images at L4-L5 level show broad-based posterior disc protrusion effacing anterior thecal sac w ith mild/moderate facet degenerative changes. There is moderate bilateral neural foraminal narrowing at this level. Some impingement on the left is felt present on sagittal image 1 similar to prior. Axial images at L5-S1 level shows focal left paracentral disc protrusion and moderate facet degenerat dragan changes bilaterally there is persistent advanced left and moderate right-sided neural foraminal n arrowing. Mild spinal canal effacement is seen though there is prominent epidural fat at this level n oted. No suspicious retroperitoneal findings are seen. IMPRESSION: Multilevel degenerative changes in lumbar spine most prominent at L1-L2, L4-L5, and L5-S1 levels as detailed above. No significant progression from prior MRI is noted.
== END | disposition home or self-care (01) ==
LOC: RADMRIMAIN 12:41
PROVIDERS: ATTEND Family Medicine
DX: M47.816 Spondylosis without myelopathy or radiculopathy, lumbar region (principal)
CPT/HCPCS: 72148

== ENCOUNTER 2017-08-19 07:20 | Emergency (ER) | payer MEDICARE, OTHER ==
[2017-08-19 07:27] VITALS: BP 123/79; PULSE 65; RESP 20
[2017-08-19] MEDS ORDERED: KETOROLAC 60 MG/2 ML VIAL IM STA (07:49)
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
== END 2017-08-19 08:14 | disposition home or self-care (01) ==
LOC: EC 07:20
DX: S16.1XXA Strain of muscle, fascia and tendon at neck level, initial encounter (principal); E78.5 Hyperlipidemia, unspecified; G40.909 Epilepsy, unspecified, not intractable, without status epilepticus; F31.9 Bipolar disorder, unspecified; F17.200 Nicotine dependence, unspecified, uncomplicated; Z79.891 Long term (current) use of opiate analgesic; Z79.899 Other long term (current) drug therapy; Z88.1 Allergy status to other antibiotic agents; Z88.8 Allergy status to other drugs, medicaments and biological substances; Z86.14 Personal history of Methicillin resistant Staphylococcus aureus infection; X58.XXXA Exposure to other specified factors, initial encounter
CPT/HCPCS: 99283; 96372; J1885

== ENCOUNTER 2017-08-23 10:36 | Day surgery (SDC) | payer MEDICARE, OTHER ==
[2017-08-16 15:44] VITALS: BMI 26.6
[~2017-08-23 10:36] MED LIST: LACTATED RINGERS 1,000 ML IV ONE; ONDANSETRON 4 MG/2 ML VIAL IVP ONE
[2017-08-23] MEDS ORDERED: LIDOCAINE 1% 20 ML VIAL (10MG/ML) FOR IV START INTRADERMA ONE (10:49)
[2017-08-23] MEDS ORDERED: LIDOCAINE 1% INJ 10MG/ML (20 ML MDV) ONE (12:09)
[2017-08-23] MEDS ORDERED: PROPOFOL 10 MG/ML 20 ML VIAL IV ONE (12:09)
--- NOTE | 2017-08-23 12:41 | P.PCN ---
Date of Procedure: 08/23/17 Procedure(s) Performed: Procedure: Total colonoscopy. Preoperative diagnosis: Screening for neoplasia. Postoperative diagnosis: Exam within normal limits. Preparation: HalfLytely prep. Sedation: Was provided by anesthesia. Brief clinical history: The patient is a 57-year-old female who is referred for this evaluation for screening for neoplasia. She had a prior exam several years back. She has no abdominal complaints, bleeding or anemia. Procedure: With the patient on her left lateral decubitus position and after informed consent and adequate sedation, the perianal area was inspected and it did not show any fissures or fistulas. There were no masses felt on digital rectal examination. The Olympus CFQ 160L video colonoscope was then inserted in the rectum in the usual fashion and advanced to the cecum. The mucosa appeared healthy. No polyps or tumors were seen or any obvious diverticular disease or other pathology. I retroflexed the endoscope in the rectum before the endoscope was withdrawn. The patient tolerated the procedure well. Plan: The patient was reassured. She will follow up with you as planned and I recommended repeat exam in 10 years.
[2017-08-23 16:35] VITALS: BP 114/63; PULSE 55; RESP 18; TEMP 97.5
== END 2017-08-23 13:28 | disposition home or self-care (01) ==
LOC: ORWHC2ENDO 10:36
DX: Z12.11 Encounter for screening for malignant neoplasm of colon (principal); J44.9 Chronic obstructive pulmonary disease, unspecified; K21.9 Gastro-esophageal reflux disease without esophagitis; M19.90 Unspecified osteoarthritis, unspecified site; R56.9 Unspecified convulsions; Z88.1 Allergy status to other antibiotic agents; Z88.8 Allergy status to other drugs, medicaments and biological substances; Z79.891 Long term (current) use of opiate analgesic; Z79.899 Other long term (current) drug therapy; Z85.41 Personal history of malignant neoplasm of cervix uteri
CPT/HCPCS: G0121; J2001; J2704

== ENCOUNTER 2017-10-08 07:52 | Emergency (ER) | payer MEDICARE, OTHER ==
[2017-10-08 08:03] VITALS: BP 115/81; PULSE 82; RESP 18; TEMP 98.3
[2017-10-08] MEDS ORDERED: IPRATROPIUM-ALBUTEROL 3 ML NEB INHALATION STA (08:17)
--- NOTE | 2017-10-08 08:23 | ED ---
General Adult HPI - General Chief complaint: Nausea/Vomiting/Diarrhea Stated complaint: Vomiting Time Seen by Provider: 10/08/17 08:12 Source: patient, RN notes reviewed Mode of arrival: ambulatory Limitations: no limitations - History of Present Illness Initial comments: 57-year-old female who presents emergency room today with chief complaint of symptoms of nausea vomiting that occurred last night. She states she had some bouts of vomiting. She states she was worried about breathing because she was having a hard time. She does admit that she has history of asthma. She was worried that her foot when into her lungs. States vomiting is much improved and no longer feeling nauseous. States came here just make sure that her breathing was okay. Patient denies any other complaints. She does admit that it feels better. Patient denies any recent fever, chills, shortness of breath, chest pain, back pain, numbness or tingling, dysuria or hematuria, constipation or diarrhea, headaches or visual changes, or any other complaints. - Related Data Home Medications Medication Instructions Recorded Confirmed oxyCODONE-APAP 10-325MG [Percocet 1 tab PO TID 02/10/16 08/23/17 10-325 mg] Simvastatin [Zocor] 20 mg PO DAILY 07/09/16 08/23/17 Omeprazole 20 mg PO DAILY 03/31/17 08/23/17 ALPRAZolam [Xanax] 1 mg PO TID PRN 08/16/17 08/23/17 Albuterol Inhaler [Ventolin Hfa 2 puff INHALATION QID PRN 08/16/17 08/23/17 Inhaler] Lurasidone HCl [Latuda] 120 mg PO DAILY 08/16/17 08/23/17 Tiotropium 18 Mcg/Puff [Spiriva] 1 puff INHALATION DAILY PRN 08/16/17 08/23/17 Trazodone(Dose Unknown) 2 tab PO HS 08/16/17 08/23/17 Trileptal(Dose Unknown) 1 tab PO BID 08/16/17 08/23/17 Previous Rx's Medication Instructions Recorded Escitalopram [Lexapro] 10 mg PO DAILY #30 04/05/17 Albuterol Inhaler [Ventolin Hfa 1 - 2 puff INHALATION Q4-6H PRN #1 10/08/17 Inhaler] inhaler Allergies Allergy/AdvReac Type Severity Reaction Status Date / Time azithromycin [From Zithromax] Allergy Severe Anaphylaxis Verified 10/08/17 08:03 methylprednisolone Allergy Severe Anaphylaxis Verified 10/08/17 08:03 [From Medrol] Review of Systems ROS Statement: Those systems with pertinent positive or pertinent negative responses have been documented in the HPI. ROS Other: All systems not noted in ROS Statement are negative. Past Medical History Past Medical History: Asthma, Cancer, COPD, Hyperlipidemia, Osteoarthritis (OA) , Pneumonia, Seizure Disorder Additional Past Medical History / Comment(s): last seizure 20 yrs ago, bradycardia, cervical cancer, vertigo History of Any Multi-Drug Resistant Organisms: MRSA Date of last positivie culture/infection: 2014 MDRO Source:: FACE/EARS Past Surgical History: Adenoidectomy, Section, Hernia Repair, Tonsillectomy Additional Past Surgical History / Comment(s): D&C, rt WRIST surgery, eye surgery Past Anesthesia/Blood Transfusion Reactions: No Reported Reaction Past Psychological History: Anxiety, Bipolar, Depression, Panic Disorder Smoking Status: Current every day smoker Past Alcohol Use History: None Reported Past Drug Use History: None Reported - Past Family History Mother History Unknown: Yes Family Medical History: No Reported History General Exam - General Exam Comments Initial Comments: General: The patient is awake and alert, in no distress, and does not appear acutely ill. Eye: Pupils are equal, round and reactive to light, extra-ocular movements are intact. No nystagmus. There is normal conjunctiva bilaterally. No signs of icterus. Ears, nose, mouth and throat: There are moist mucous membranes and no oral lesions. Neck: The neck is supple, there is no tenderness or JVD. Cardiovascular: There is a regular rate and rhythm. No murmur, rub or gallop is appreciated. Respiratory: Lungs are clear to auscultation, respirations are non-labored, breath sounds are equal. No wheezes, stridor, rales, or rhonchi. Musculoskeletal: Normal ROM, no tenderness. Strength 5/5. Sensation intact. Pulses equal bilaterally 2+. Neurological: A&O x 3. CN II-XII intact, There are no obvious motor or sensory deficits. Coordination appears grossly intact. Speech is normal. Skin: Skin is warm and dry and no rashes or lesions are noted. Psychiatric: Cooperative, appropriate mood & affect, normal judgment. Limitations: no limitations Course Vital Signs 10/08/17 08:01 Temperature 98.3 F Pulse Rate 82 Respiratory 18 Rate Blood Pressure 115/81 O2 Sat by Pulse 97 Oximetry Medical Decision Making - Medical Decision Making Patient has been very impatient here in the emergency room she repeatedly states that she cannot stay very long. Initially did discuss with the patient about doing a chest x-ray and breathing treatment she was agreeable to this. When she was told it will take approximate hour. She states she could not wait that long. She states she wants to leave. She will be given an albuterol inhaler. She states she will return if symptoms increase or worsen. Disposition Clinical Impression: Nausea & vomiting, History of asthma Disposition: HOME SELF-CARE Condition: Good Instructions: Acute Nausea and Vomiting (ED) Additional Instructions: Please use medication as discussed. Please follow-up with family doctor in the next 2 days of symptoms have not improved. Please return to emergency room if the symptoms increase or worsen or for any other concerns. Prescriptions: Albuterol Inhaler [Ventolin Hfa Inhaler] 1 - 2 puff INHALATION Q4-6H PRN #1 inhaler PRN Reason: Cough Referrals: Parvin Le MD [Primary Care Provider] - 1-2 days Time of Disposition: 08:22
== END 2017-10-08 08:30 | disposition home or self-care (01) ==
LOC: EC 07:52
DX: R11.2 Nausea with vomiting, unspecified (principal); J45.909 Unspecified asthma, uncomplicated; E78.5 Hyperlipidemia, unspecified; G40.909 Epilepsy, unspecified, not intractable, without status epilepticus; F31.9 Bipolar disorder, unspecified; F17.200 Nicotine dependence, unspecified, uncomplicated; Z79.891 Long term (current) use of opiate analgesic; Z79.899 Other long term (current) drug therapy; Z88.1 Allergy status to other antibiotic agents; Z88.8 Allergy status to other drugs, medicaments and biological substances; Z86.14 Personal history of Methicillin resistant Staphylococcus aureus infection
CPT/HCPCS: 99283

== ENCOUNTER 2017-12-01 12:29 | Inpatient (IN) | payer MEDICARE, MEDICAID ==
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
[2017-12-01 14:04] LABS: Amphetamine Screen,Urine Not Detected (NotDetected); Barbiturate Screen,Urine Not Detected (NotDetected); Benzodiazepines Screen,Urine Not Detected (NotDetected); Cocaine Screen,Urine Detected (NotDetected); Methadone Screen, Urine Not Detected (NotDetected); Opiate Screen,Urine Not Detected (NotDetected); Oxycodone Screen, Urine Not Detected (NotDetected); Phencyclidine Screen,Urine Not Detected (NotDetected); Tricyclic Antidepressant,Urine Not Detected (NotDetected); Urn Cannabinoid Scrn Not Detected (NotDetected)
[2017-12-01] MEDS ORDERED: ALPRAZolam 1 MG TAB PO PRN (14:30)
[2017-12-01] MEDS ORDERED: LORazepam 1 MG TAB PO STA (14:31)
[2017-12-01] MEDS ORDERED: ALPRAZolam 1 MG TAB PO STA (14:32)
[2017-12-01] MEDS ORDERED: MAGNESIUM HYDROXIDE 2,400 MG/10 ML CUP PO PRN (15:51)
[2017-12-01] MEDS ORDERED: MAG HYDROX/AL HYDROX/SIMETH 30 ML CUP PO PRN (15:51)
[2017-12-01] MEDS ORDERED: ACETAMINOPHEN TAB 325 MG TAB PO PRN (15:51)
[2017-12-01 16:01] LABS: Appearance,Urine Clear (Clear); Bilirubin,Urine Negative (Negative); Blood,Urine Negative (Negative); Color,Urine Light Yellow; Glucose,Urine (UA) Negative (Negative); Ketones,Urine Negative (Negative); Leukocyte Esterase,Urine Negative (Negative); Nitrite,Urine Negative (Negative); PH, Urine 5.5 (5.0-8.0); Protein,Urine Negative (Negative); Specific Gravity,Urine 1.005 (1.001-1.035); Urobilinogen,Urine <2.0 mg/dL (<2.0)
[2017-12-01] MEDS: NICOTINE 14MG/24HR PATCH TRANSDERM SCH (17:30)
[2017-12-01] MEDS: HYDROcodone/APAP 5-325MG 1 EACH TAB PO PRN (17:31)
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
[2017-12-01] MEDS: traZODone HCL 100 MG TAB PO SCH (21:45)
[2017-12-01] MEDS: OXcarbazepine 300 MG TAB PO SCH (21:45)
[2017-12-02] MEDS: ALPRAZolam 1 MG TAB PO PRN ×2 (00:29→16:33)
[2017-12-02] MEDS: NICOTINE 14MG/24HR PATCH TRANSDERM SCH (08:25)
[2017-12-02] MEDS: ATORVASTATIN 10 MG TAB PO SCH (08:26)
[2017-12-02] MEDS: LORATADINE 10 MG TAB PO SCH (08:26)
[2017-12-02] MEDS: LURASIDONE 40 MG TAB PO SCH (08:26)
[2017-12-02] MEDS: OXcarbazepine 300 MG TAB PO SCH ×2 (08:26→20:54)
[2017-12-02] MEDS: ESCITALOPRAM 5 MG TAB PO SCH (08:26)
[2017-12-02] MEDS: PANTOPRAZOLE 40 MG TABLET PO SCH (08:26)
[2017-12-02] MEDS: HYDROcodone/APAP 5-325MG 1 EACH TAB PO PRN ×2 (08:27→16:33)
[2017-12-02 08:48] LABS: Basophils % (A) 1 %; Eosinophils # (A) 0.1 k/uL (0-0.7); Eosinophils % (A) 3 %; HCT 50.2 % (34.0-46.0); HGB 15.5 gm/dL (11.4-16.0); Lymphocytes # (A) 2.5 k/uL (1.0-4.8); Lymphocytes % (A) 52 %; MCH 28.7 pg (25.0-35.0); MCHC 30.9 g/dL (31.0-37.0); MCV 92.9 fL (80.0-100.0); Mean Platelet Volume 6.8; Monocytes # (A) 0.2 k/uL (0-1.0); Monocytes % (A) 5 %; Neutrophils # (A) 1.8 k/uL (1.3-7.7); Neutrophils % (A) 38 %; Platelet Count 266 k/uL (150-450); RDW 12.6 % (11.5-15.5); WBC 4.7 k/uL (3.8-10.6)
[2017-12-02 09:09] LABS: Calcium 9.3 mg/dL (8.4-10.2); Potassium 4.3 mmol/L (3.5-5.1); Total Bilirubin 0.4 mg/dL (0.2-1.3); Total Protein 6.5 g/dL (6.3-8.2)
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
[2017-12-02] MEDS: ALBUTEROL INHALER 60 PUFF/8 GM INHALER INHALATION PRN (16:26)
[2017-12-02] MEDS: traZODone HCL 100 MG TAB PO SCH (20:54)
[2017-12-02 23:39] LABS: Hemoglobin A1C 5.4 % (4.0-6.0)
[2017-12-03] MEDS: ALPRAZolam 1 MG TAB PO PRN ×3 (01:12→16:34)
[2017-12-03] MEDS: HYDROcodone/APAP 5-325MG 1 EACH TAB PO PRN ×3 (01:12→16:34)
[2017-12-03] MEDS: NICOTINE 14MG/24HR PATCH TRANSDERM SCH (09:03)
[2017-12-03] MEDS: ESCITALOPRAM 5 MG TAB PO SCH (09:04)
[2017-12-03] MEDS: OXcarbazepine 300 MG TAB PO SCH ×2 (09:04→20:09)
[2017-12-03] MEDS: LURASIDONE 40 MG TAB PO SCH (09:04)
[2017-12-03] MEDS: PANTOPRAZOLE 40 MG TABLET PO SCH (09:04)
[2017-12-03] MEDS: ATORVASTATIN 10 MG TAB PO SCH (09:05)
[2017-12-03] MEDS: LORATADINE 10 MG TAB PO SCH (09:05)
--- NOTE | 2017-12-03 10:01 | P.PN ---
Progress Note - Text Interval history: The patient is found in her room she follows me to an interview room. She states that she had a difficult time this morning down at breakfast and she was choking. She was assisted by staff and recovered. She reports breathing appropriately now she is in no acute distress. Vital signs reviewed. She states that she was able to sleep yesterday she is starting to feel better. She attended 1 group yesterday. We reviewed her psychotropic medications. She indicates that her Lexapro is lower than it normally is. We will increase to 10 mg daily. I have also placed a call with her outpatient psychiatrist to collaborate. Mental status exam: The patient is alert hygiene is adequate grooming impaired. She has healing excoriations on her chin and left infraorbital region. She has noticeable wounds on her thumb that are healing. She states her mood is beginning to feel better but she still feels depressed and has low energy. She is reporting no acute suicidal ideation intent or plan. She is endorsing no homicidal ideation intent or plan. She reports no auditory or visual hallucinations or any specific delusions there is no observed evidence of psychosis. She does not appear hypomanic or manic. She demonstrates no abnormal involuntary movements. She demonstrates no verbal or physical aggressiveness. Affect is constricted. Plan: We will titrate the Lexapro to 10 mg daily we will continue her other psychotropics as written. I will confer with her outpatient psychiatrist regarding ongoing medication management. We will monitor her for safety and encourage her to participate
[2017-12-03 10:07] VITALS: BMI 24.7
[2017-12-03] MEDS: traZODone HCL 100 MG TAB PO SCH (20:09)
[2017-12-04] MEDS: HYDROcodone/APAP 5-325MG 1 EACH TAB PO PRN ×2 (07:43→15:20)
[2017-12-04] MEDS: ALPRAZolam 1 MG TAB PO PRN ×2 (07:43→15:21)
[2017-12-04] MEDS: PANTOPRAZOLE 40 MG TABLET PO SCH (07:44)
--- NOTE | 2017-12-04 09:35 | P.PN ---
Progress Note - Text Interval history: The patient is found in her room in bed she follows me to an interview room. She reports that she did sleep last night staff recorded she slept 6 hours. Appetite is stable. She is selectively attending groups. Vital signs reviewed. She does have episodes of bradycardia which she states are chronic. She reports continued feelings of depression she reports having some passing suicidal thoughts still. Mental status exam: The patient is alert but appears tired. Eye contact is appropriate speech is fluent and spontaneous. She reports passive suicidal thoughts but feels safe here in the hospital. She is endorsing no homicidal ideation intent or plan. She reports no auditory or visual hallucinations or any specific delusions. There is no overt evidence of psychosis. Thought process is linear she demonstrates no tangential thinking loose associations or flight of ideas. She is oriented to person place and date. She demonstrates no verbal or physical aggressiveness she demonstrates no abnormal involuntary movements. Plan: The patient will continue on her current psychotropic medications. We will monitor the frequency of Xanax use. Vital signs reviewed. She is encouraged to more fully participate in the milieu. We will continue to monitor her for safety.
[2017-12-04] MEDS: NICOTINE 14MG/24HR PATCH TRANSDERM SCH (09:46)
[2017-12-04] MEDS: OXcarbazepine 300 MG TAB PO SCH ×2 (09:47→20:11)
[2017-12-04] MEDS: LURASIDONE 40 MG TAB PO SCH (09:47)
[2017-12-04] MEDS: LORATADINE 10 MG TAB PO SCH (09:47)
[2017-12-04] MEDS: ESCITALOPRAM 10 MG TAB PO SCH (09:47)
[2017-12-04] MEDS: ATORVASTATIN 10 MG TAB PO SCH (09:48)
[2017-12-04] MEDS: traZODone HCL 100 MG TAB PO SCH (20:11)
[2017-12-05] MEDS ORDERED: HYDROcodone/APAP 5-325MG 1 EACH TAB ONE (00:29)
[2017-12-05] MEDS ORDERED: ALPRAZolam 1 MG TAB ONE (00:29)
[2017-12-05] MEDS: NICOTINE 14MG/24HR PATCH TRANSDERM SCH (08:34)
[2017-12-05] MEDS: OXcarbazepine 300 MG TAB PO SCH ×2 (08:35→20:54)
[2017-12-05] MEDS: PANTOPRAZOLE 40 MG TABLET PO SCH (08:35)
[2017-12-05] MEDS: ATORVASTATIN 10 MG TAB PO SCH (08:35)
[2017-12-05] MEDS: LURASIDONE 40 MG TAB PO SCH (08:35)
[2017-12-05] MEDS: ESCITALOPRAM 10 MG TAB PO SCH (08:35)
[2017-12-05] MEDS: LORATADINE 10 MG TAB PO SCH (08:35)
[2017-12-05] MEDS: HYDROcodone/APAP 5-325MG 1 EACH TAB PO PRN ×2 (08:38→16:58)
[2017-12-05] MEDS: ALPRAZolam 1 MG TAB PO PRN ×2 (08:38→18:28)
--- NOTE | 2017-12-05 10:06 | P.PN ---
Progress Note - Text Interval history: The patient is found in her room she follows me to an interview room. She reports that she still feels depressed and is still having suicidal thoughts but feels that the suicidal thoughts are becoming less frequent and strong. She states that she attended 2 groups yesterday where before he was very little participation. She is encouraged to participate more in the milieu. We reviewed her psychotropic medications. We discussed some of her short-term goals once discharged. Mental status exam: The patient is alert she has a disheveled appearance she is dressed in her own clothing. Eye contact is appropriate speech is spontaneous fluent area she reports her mood is depressed but slowly improving. She endorses a passive suicidal thought today. She indicates she feels safe here in the hospital but would not be safe to leave yet. She is reporting no homicidal ideation intent or plan. She demonstrates limited insight and judgment. She demonstrates no verbal or physical aggressiveness she demonstrates no abnormal involuntary movements. Her excoriations are healing. She is oriented to person place and date. Affect is constricted. Plan: The patient will continue on her current psychotropic medication. She is encouraged to attend more groups today rather than stay in her bed. We will continue to monitor her for safety. We will consider discharging her towards the end of the week.
[2017-12-05] MEDS ORDERED: BACITRACIN 500 UNIT/GM OINT 28.4 GM TUBE TOPICAL PRN (16:12)
[2017-12-05] MEDS: traZODone HCL 100 MG TAB PO SCH (20:54)
[2017-12-05] MEDS: ALBUTEROL INHALER 60 PUFF/8 GM INHALER INHALATION PRN (21:20)
[2017-12-06] MEDS: ALPRAZolam 1 MG TAB PO PRN ×3 (05:00→22:02)
[2017-12-06] MEDS: HYDROcodone/APAP 5-325MG 1 EACH TAB PO PRN ×2 (07:53→16:32)
[2017-12-06] MEDS: PANTOPRAZOLE 40 MG TABLET PO SCH (07:55)
--- NOTE | 2017-12-06 09:00 | P.PN ---
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 She reports her mood is improved. She did shower this morning. She reports attending more groups yesterday. Sleep is stable last evening appetite stable. She reported having some dizziness last evening her blood pressure values were reviewed and it did seem lower last evening. We discussed that this is likely the interaction of the Xanax with the [place]. Mental status exam: The patient is alert she presents with good hygiene improved grooming she is dressed in her own clothing. Eye contact is appropriate speech is fluent spontaneous nonpressured. She reports her mood is better she is expressing no acute suicidal ideation and feels symptoms of depression are resolving. She is reporting no acute anxiety. She reports no auditory or visual hallucinations or any specific delusions. There is no observed evidence of psychosis. She still has some evidence of psychomotor slowing but improved from yesterday. She demonstrates no verbal or physical aggressiveness she demonstrates no abnormal involuntary movements. She remains oriented to person place and date. Plan: The patient will continue on her current medications however we will reduce the frequency of Xanax to 1 mg twice daily. We expect to discharge her tomorrow if she demonstrates further clinical improvement and appears clinically stable. Vital signs reviewed.
[2017-12-06] MEDS: NICOTINE 14MG/24HR PATCH TRANSDERM SCH (09:11)
[2017-12-06] MEDS: LURASIDONE 40 MG TAB PO SCH (09:11)
[2017-12-06] MEDS: ATORVASTATIN 10 MG TAB PO SCH (09:13)
[2017-12-06] MEDS: LORATADINE 10 MG TAB PO SCH (09:13)
[2017-12-06] MEDS: OXcarbazepine 300 MG TAB PO SCH ×2 (09:14→22:02)
[2017-12-06] MEDS: ESCITALOPRAM 10 MG TAB PO SCH (09:14)
[2017-12-06] MEDS: ALBUTEROL INHALER 60 PUFF/8 GM INHALER INHALATION PRN (21:12)
[2017-12-06] MEDS: traZODone HCL 100 MG TAB PO SCH (22:02)
[2017-12-07] MEDS: HYDROcodone/APAP 5-325MG 1 EACH TAB PO PRN ×2 (00:53→07:55)
[2017-12-07 01:00] VITALS: BP 125/81; PULSE 81; RESP 20; TEMP 97.5
[2017-12-07] MEDS: PANTOPRAZOLE 40 MG TABLET PO SCH (07:54)
[2017-12-07] MEDS: ALPRAZolam 1 MG TAB PO PRN (07:54)
[2017-12-07] MEDS: NICOTINE 14MG/24HR PATCH TRANSDERM SCH (07:57)
[2017-12-07] MEDS: LURASIDONE 40 MG TAB PO SCH (07:57)
[2017-12-07] MEDS: LORATADINE 10 MG TAB PO SCH (07:57)
[2017-12-07] MEDS: ATORVASTATIN 10 MG TAB PO SCH (07:57)
[2017-12-07] MEDS: ESCITALOPRAM 10 MG TAB PO SCH (07:57)
[2017-12-07] MEDS: OXcarbazepine 300 MG TAB PO SCH (07:58)
[2017-12-07] MEDS: ALBUTEROL INHALER 60 PUFF/8 GM INHALER INHALATION PRN (09:38)
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
== END 2017-12-07 13:37 | disposition home or self-care (01) | DRG 885 ==
LOC: EC 12:29 → 3MHU 14:33
PROVIDERS: ADMIT Psychiatry & Neurology Psychiatry; ATTEND Psychiatry & Neurology Psychiatry
DX: F31.30 Bipolar disorder, current episode depressed, mild or moderate severity, unspecified (principal); R45.851 Suicidal ideations; F14.20 Cocaine dependence, uncomplicated; G40.909 Epilepsy, unspecified, not intractable, without status epilepticus; F41.0 Panic disorder [episodic paroxysmal anxiety]; E78.5 Hyperlipidemia, unspecified; G89.29 Other chronic pain; M54.5 Low back pain; J44.9 Chronic obstructive pulmonary disease, unspecified; K21.9 Gastro-esophageal reflux disease without esophagitis; R00.1 Bradycardia, unspecified; M19.91 Primary osteoarthritis, unspecified site; F12.11 Cannabis abuse, in remission; F17.210 Nicotine dependence, cigarettes, uncomplicated; Z71.6 Tobacco abuse counseling; Z79.899 Other long term (current) drug therapy; Z87.01 Personal history of pneumonia (recurrent); Z85.41 Personal history of malignant neoplasm of cervix uteri; Z86.14 Personal history of Methicillin resistant Staphylococcus aureus infection; Z88.1 Allergy status to other antibiotic agents; Z88.8 Allergy status to other drugs, medicaments and biological substances
CPT/HCPCS: 80053; 80061; 80183; 80306; 81003; 81025; 82075; 83036; 84443; 85025; 94640; 99285

== ENCOUNTER 2018-01-17 11:50 | Inpatient (IN) | payer MEDICARE, MEDICAID ==
--- NOTE | 2018-01-17 12:34 | ED ---
Psych HPI - General Chief Complaint: Psychiatric Symptoms Stated Complaint: SUICIDAL Time Seen by Provider: 01/17/18 12:17 Source: patient, RN notes reviewed Mode of arrival: ambulatory Limitations: no limitations - History of Present Illness Initial Comments: This is a 57-year-old female presents emergency Department requesting psychiatric evaluation. Patient states she is depressed and suicidal. She states that she has been counting knives at home. She has been admitted several times for psychiatric issues. She states that she's had a manic state. Patient states that she used cocaine 5 days ago. Patient denies any homicidal ideation denies any physical complaints. - Related Data Home Medications Medication Instructions Recorded Confirmed Simvastatin [Zocor] 20 mg PO HS 07/09/16 01/17/18 Lurasidone HCl [Latuda] 120 mg PO DAILY 08/16/17 01/17/18 Loratadine [Claritin] 10 mg PO DAILY 12/01/17 01/17/18 OXcarbazepine [Trileptal] 600 mg PO BID 12/01/17 01/17/18 traZODone HCL [Desyrel] 300 mg PO HS 12/01/17 01/17/18 ALPRAZolam [Xanax] 1 mg PO TID PRN 01/17/18 01/17/18 oxyCODONE HCL/ACETAMINOPHEN 1 tab PO TID PRN 01/17/18 01/17/18 [Percocet 10-325 mg] Previous Rx's Medication Instructions Recorded Escitalopram [Lexapro] 10 mg PO DAILY #30 tab 12/07/17 Allergies Allergy/AdvReac Type Severity Reaction Status Date / Time azithromycin [From Zithromax] Allergy Severe Anaphylaxis Verified 01/17/18 12:32 methylprednisolone Allergy Severe Anaphylaxis Verified 01/17/18 12:32 [From Medrol] Review of Systems ROS Statement: Those systems with pertinent positive or pertinent negative responses have been documented in the HPI. ROS Other: All systems not noted in ROS Statement are negative. Past Medical History Past Medical History: Asthma, Cancer, COPD, Hyperlipidemia, Osteoarthritis (OA) , Pneumonia, Seizure Disorder Additional Past Medical History / Comment(s): last seizure 20 yrs ago, bradycardia, cervical cancer, vertigo History of Any Multi-Drug Resistant Organisms: MRSA Date of last positivie culture/infection: 2014 MDRO Source:: FACE/EARS Past Surgical History: Adenoidectomy, Section, Hernia Repair, Tonsillectomy Additional Past Surgical History / Comment(s): D&C, rt WRIST surgery, eye surgery Past Anesthesia/Blood Transfusion Reactions: No Reported Reaction Past Psychological History: Anxiety, Bipolar, Depression, Panic Disorder Smoking Status: Current every day smoker Past Alcohol Use History: None Reported Past Drug Use History: Cocaine - Past Family History Mother History Unknown: Yes Family Medical History: No Reported History General Exam Limitations: no limitations General appearance: alert, in no apparent distress, anxious Head exam: Present: atraumatic, normocephalic, normal inspection Eye exam: Present: normal appearance, PERRL, EOMI. Absent: scleral icterus, conjunctival injection, periorbital swelling Respiratory exam: Present: normal lung sounds bilaterally. Absent: respiratory distress, wheezes, rales, rhonchi, stridor Cardiovascular Exam: Present: regular rate, normal rhythm, normal heart sounds. Absent: systolic murmur, diastolic murmur, rubs, gallop, clicks Neurological exam: Present: alert, oriented X3, CN II-XII intact Psychiatric exam: Present: anxious, manic Skin exam: Present: warm, dry, intact, normal color. Absent: rash Course Vital Signs 01/17/18 12:01 Temperature 96.9 F L Pulse Rate 74 Respiratory 28 H Rate Blood Pressure 137/92 O2 Sat by Pulse 95 Oximetry - Reevaluation(s) Reevaluation #1: 01/17/18 13:43 Patient has repeatedly asked for benzodiazepines in emergency department. I did inform her that she will not receive any benzodiazepines. Medical Decision Making - Medical Decision Making 57-year-old female presents from for psychiatric evaluation. Patient was evaluated by EPS case discussed with on-call psychiatrist. They did not recommend inpatient treatment. Patient is admitted as a pain seeking in the emergency Department. She was informed that she'll not receive any. Patient was given outpatient services. She was also advised to stop using illicit drugs. - Lab Data Lab Results 01/17/18 Range/Units 12:50 Urine Opiates Screen Not Detected (NotDetected) Ur Oxycodone Screen Not Detected (NotDetected) Urine Methadone Screen Not Detected (NotDetected) Ur Propoxyphene Screen Not Detected (NotDetected) Ur Barbiturates Screen Not Detected (NotDetected) U Tricyclic Antidepress Not Detected (NotDetected) Ur Phencyclidine Scrn Not Detected (NotDetected) Ur Amphetamines Screen Not Detected (NotDetected) U Methamphetamines Scrn Not Detected (NotDetected) U Benzodiazepines Scrn Not Detected (NotDetected) Urine Cocaine Screen Detected H (NotDetected) U Marijuana (THC) Screen Not Detected (NotDetected) Disposition Clinical Impression: Bipolar disorder, Cocaine use disorder, severe, dependence Disposition: HOME SELF-CARE Condition: Stable Instructions: Cocaine Abuse (ED) Additional Instructions: Please return to the Emergency Department if symptoms worsen or any other concerns. Is patient prescribed a controlled substance at d/c from ED?: No Referrals: None,Stated [Primary Care Provider] - 1-2 days Time of Disposition: 13:44
[2018-01-17 13:11] LABS: Amphetamine Screen,Urine Not Detected (NotDetected); Barbiturate Screen,Urine Not Detected (NotDetected); Benzodiazepines Screen,Urine Not Detected (NotDetected); Cocaine Screen,Urine Detected (NotDetected); Methadone Screen, Urine Not Detected (NotDetected); Opiate Screen,Urine Not Detected (NotDetected); Oxycodone Screen, Urine Not Detected (NotDetected); Phencyclidine Screen,Urine Not Detected (NotDetected); Tricyclic Antidepressant,Urine Not Detected (NotDetected); Urn Cannabinoid Scrn Not Detected (NotDetected)
--- NOTE | 2018-01-17 14:16 | ED ---
Medical Decision Making - Medical Decision Making 37-year-old presented for psychiatric evaluation. Patient was plan to be discharged. Though she would not contract for safety and at this time. She will be admitted. - Lab Data Lab Results 01/17/18 Range/Units 12:50 Urine Opiates Screen Not Detected (NotDetected) Ur Oxycodone Screen Not Detected (NotDetected) Urine Methadone Screen Not Detected (NotDetected) Ur Propoxyphene Screen Not Detected (NotDetected) Ur Barbiturates Screen Not Detected (NotDetected) U Tricyclic Antidepress Not Detected (NotDetected) Ur Phencyclidine Scrn Not Detected (NotDetected) Ur Amphetamines Screen Not Detected (NotDetected) U Methamphetamines Scrn Not Detected (NotDetected) U Benzodiazepines Scrn Not Detected (NotDetected) Urine Cocaine Screen Detected H (NotDetected) U Marijuana (THC) Screen Not Detected (NotDetected) Disposition Clinical Impression: Bipolar disorder, Cocaine use disorder, severe, dependence, Depression, Suicidal ideation Disposition: ADMITTED IP TO THIS HOSP Condition: Stable Instructions: Cocaine Abuse (ED) Additional Instructions: Please return to the Emergency Department if symptoms worsen or any other concerns. Referrals: None,Stated [Primary Care Provider] - 1-2 days
[2018-01-17] MEDS ORDERED: ACETAMINOPHEN TAB 325 MG TAB PO PRN (15:14)
[2018-01-17] MEDS ORDERED: MAG HYDROX/AL HYDROX/SIMETH 30 ML CUP PO PRN (15:14)
[2018-01-17] MEDS ORDERED: MAGNESIUM HYDROXIDE 2,400 MG/10 ML CUP PO PRN (15:14)
[2018-01-17] MEDS ORDERED: hydrOXYzine PAMOATE 25 MG CAP PO PRN (15:17)
[2018-01-17 15:18] VITALS: BMI 25.4
[2018-01-17] MEDS ORDERED: IBUPROFEN 600 MG TAB PO PRN (15:19)
[2018-01-17] MEDS ORDERED: ZIPRASIDONE 20 MG VIAL IM PRN (16:33)
[2018-01-17] MEDS ORDERED: MINERAL OIL-WHITE PETROLATUM 120 GM JAR TOPICAL PRN (16:45)
--- NOTE | 2018-01-17 16:45 | P.HPMEDMHU ---
History of Present Illness H&P Date: 01/17/18 Chief Complaint: suicidal ideation Is a 57-year-old female with a past medical history of asthma, dyslipidemia, seizure disorder with last seizure 1986, and chronic low back pain who presented to the emergency department requesting mental health evaluation. Apparently she is depressed and suicidal. She was subsequently admitted to the mental health unit. Patient seen and examined. She complains about her chronic back pain and anxiety. She takes she typically takes Percocet and Xanax at home. She states that she has had poor sleep and has only been sleeping 1-2 hours nightly, however last night she slept 8 hours. She also complains of increased anxiety and she feels anxious becoming manic. She tells me she has had thoughts of suicide. She denies any coughs, colds, fevers, flu. No nausea vomiting diarrhea or constipation. No dysuria. She complains of rashes on her face secondary to picking them due to her anxiety. Asking for anything to help with anxiety even Haldol. Review of Systems Positives: + Anxiety, + chronic low back pain, + facial lesions, + poor sleep, + suicidal ideation Pertinent positives and negatives as discussed in HPI, a complete review of systems was performed and all other systems are negative. Past Medical History Past Medical History: Asthma, Cancer, COPD, Hyperlipidemia, Osteoarthritis (OA) , Pneumonia, Seizure Disorder Additional Past Medical History / Comment(s): last seizure 1986, bradycardia, cervical cancer, vertigo, chronic low back pain History of Any Multi-Drug Resistant Organisms: MRSA Date of last positivie culture/infection: 2014 MDRO Source:: FACE/EARS Past Surgical History: Adenoidectomy, Section, Hernia Repair, Tonsillectomy Additional Past Surgical History / Comment(s): D&C, rt WRIST surgery, eye surgery Past Anesthesia/Blood Transfusion Reactions: No Reported Reaction Smoking Status: Current every day smoker Past Alcohol Use History: None Reported Past Drug Use History: Cocaine - Past Family History Mother History Unknown: Yes Additional Family Medical History / Comment(s): Alzheimer's disease Father Additional Family Medical History / Comment(s): Heart disease, dyslipidemia, hypertension Medications and Allergies Home Medications Medication Instructions Recorded Confirmed Type Simvastatin [Zocor] 20 mg PO HS 07/09/16 01/17/18 History Lurasidone HCl [Latuda] 120 mg PO DAILY 08/16/17 01/17/18 History Loratadine [Claritin] 10 mg PO DAILY 12/01/17 01/17/18 History OXcarbazepine [Trileptal] 600 mg PO BID 12/01/17 01/17/18 History traZODone HCL [Desyrel] 300 mg PO HS 12/01/17 01/17/18 History Escitalopram [Lexapro] 10 mg PO DAILY #30 tab 12/07/17 01/17/18 Rx ALPRAZolam [Xanax] 1 mg PO TID PRN 01/17/18 01/17/18 History oxyCODONE HCL/ACETAMINOPHEN 1 tab PO TID PRN 01/17/18 01/17/18 History [Percocet 10-325 mg] Allergies Allergy/AdvReac Type Severity Reaction Status Date / Time azithromycin [From Zithromax] Allergy Severe Anaphylaxis Verified 01/17/18 12:32 methylprednisolone Allergy Severe Anaphylaxis Verified 01/17/18 12:32 [From Medrol] Physical Exam Osteopathic Statement: *. No significant issues noted on an osteopathic structural exam other than those noted in the History and Physical/Consult. Vitals: Vital Signs Temp Pulse Pulse Resp BP BP Pulse Ox 01/17/18 15:35 97.8 F 73 16 130/88 97 01/17/18 14:58 97.8 F 73 16 130/88 97 01/17/18 14:30 98.6 F 82 19 148/95 99 01/17/18 12:01 96.9 F L 74 28 H 137/92 95 Intake and Output 01/17/18 01/17/18 01/17/18 06:59 14:59 22:59 Other: Weight 65.034 kg General: non toxic, no distress, appears older than stated age, normal weight Derm: Multiple pinpoint lesions in stages of healing on her face including one underneath the left eye, small 0.5 cm abrasion inside of left foot, no unusual ecchymoses, warm, dry Head: atraumatic, normocephalic, symmetric Eyes: EOMI, no lid lag, anicteric sclera, pupils equal round reactive to light ENT: Nose and ears atraumatic, no thrush, no pharyngeal erythema Neck: No thyromegaly, no cervical lymphadenopathy, trachea midline, supple Mouth: no lip lesion, mucus membranes moist Cardiovascular: S1S2 reg, no murmur, positive posterior tibial pulse bilateral, no edema, capillary refill less than 2 seconds Lungs: CTA bilateral, no rhonchi, no rales , no accessory muscle use Abdominal: soft, nontender to palpation, no guarding, no appreciable organomegaly, normal bowel sounds Ext: no gross muscle atrophy, muscle strength 5 out of 5 in all 4 extremities grossly, no contractures, Neuro: CN II-XI grossly intact, light touch intact all 4 extremities, finger to nose within normal limits, Psych: Alert, oriented, anxious, pacing and unable to sit room during exam, pressured speech Cranial Nerve Examination - Cranial Nerves Cranial Nerve II- Optic: Intact Cranial Nerve III- Oculomotor: Intact Cranial Nerve IV- Trochlear: Intact Cranial Nerve V- Trigeminal: Intact Cranial Nerve - Abducens: Intact Cranial Nerve VII- Facial: Intact Cranial Nerve VIII- Auditory: Intact Cranial Nerve IX- Glossopharyngeal: Intact Cranial Nerve X- Vagus: Intact Cranial Nerve XI- Accessory: Intact Cranial Nerve XII- Hypoglossal: Intact Results Labs: Abnormal Lab Results - Last 24 Hours (Table) 01/17/18 Range/Units 12:50 Urine Cocaine Screen Detected H (NotDetected) Thrombosis Risk Factor Assmnt - DVT/VTE Prophylaxis DVT/VTE Prophylaxis: Low risk, early ambulation encouraged - Choose All That Apply Each Factor Represents 1 point: Age 41-60 years Other Risk Factors: No Other congenital or acquired thrombophilia - If yes, enter type in comment: No Thrombosis Risk Factor Assessment Total Risk Factor Score: 1 Thrombosis Risk Factor Assessment Level: Low Risk Assessment and Plan Assessment: Multiple self-inflicted abrasion due to picking -As needed antibacterial ointment -Treatment of anxiety which will decrease picking Dyslipidemia -Lipitor -Lipid profile checked November 2017 which showed slightly elevated LDL cholesterol at 115 and HDL at 65 this would give a favorable cholesterol profile her Lipitor should be continued. Chronic pain -Your management of chronic pain -When necessary Motrin and Tylenol Asthma -When necessary bronchodilators Bipolar disorder and panic disorder -Your psych management -TSH checked November 2017 and was within normal limits at 1.460. Hemoglobin A1c 5.4. -We will discontinue repeat testing of hemoglobin A1c and lipid panel if these are not indicated this close together. Thank you for allowing us to participate in the care of this patient. We will follow peripherally. Do not hesitate to contact us with questions. Someone can be reached from the [facility] [place] hospitalist group at all hours of the day at [phone].
[2018-01-17] MEDS: NICOTINE 14MG/24HR PATCH TRANSDERM SCH (16:55)
[2018-01-17] MEDS: LORazepam 1 MG TAB PO PRN (17:01)
[2018-01-17] MEDS ORDERED: ALBUTEROL INHALER 60 PUFF/8 GM INHALER INHALATION PRN (17:11)
[2018-01-17] MEDS: ATORVASTATIN 10 MG TAB PO SCH (20:41)
[2018-01-17] MEDS: OXcarbazepine 300 MG TAB PO SCH (20:42)
[2018-01-17] MEDS ORDERED: traZODone HCL 100 MG TAB PO SCH (21:00)
[2018-01-18] MEDS: LORazepam 1 MG TAB PO PRN ×3 (02:42→18:35)
[2018-01-18] MEDS: NICOTINE 14MG/24HR PATCH TRANSDERM SCH (08:20)
[2018-01-18] MEDS: LURASIDONE 40 MG TAB PO SCH (08:20)
[2018-01-18] MEDS: LORATADINE 10 MG TAB PO SCH (08:21)
[2018-01-18] MEDS: OXcarbazepine 300 MG TAB PO SCH ×2 (08:21→20:58)
[2018-01-18] MEDS ORDERED: ESCITALOPRAM 10 MG TAB PO SCH (09:00)
[2018-01-18] MEDS: HYDROcodone/APAP 7.5-325MG 1 EACH TAB PO PRN ×2 (10:17→17:36)
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
[2018-01-18 11:43] LABS: Basophils % (A) 0 %; Eosinophils # (A) 0.1 k/uL (0-0.7); Eosinophils % (A) 2 %; HCT 43.5 % (34.0-46.0); HGB 14.2 gm/dL (11.4-16.0); Lymphocytes # (A) 1.4 k/uL (1.0-4.8); Lymphocytes % (A) 38 %; MCH 30.1 pg (25.0-35.0); MCHC 32.5 g/dL (31.0-37.0); MCV 92.6 fL (80.0-100.0); Mean Platelet Volume 6.7; Monocytes # (A) 0.3 k/uL (0-1.0); Monocytes % (A) 8 %; Neutrophils # (A) 1.8 k/uL (1.3-7.7); Neutrophils % (A) 50 %; Platelet Count 239 k/uL (150-450); RDW 13.1 % (11.5-15.5); WBC 3.6 k/uL (3.8-10.6)
[2018-01-18 11:56] LABS: Albumin 3.6 g/dL (3.5-5.0); Calcium 9.4 mg/dL (8.4-10.2); Potassium 4.8 mmol/L (3.5-5.1); Total Bilirubin 0.2 mg/dL (0.2-1.3); Total Protein 5.7 g/dL (6.3-8.2)
[2018-01-18] MEDS: BACITRACIN 500 UNIT/GM OINT 28.4 GM TUBE TOPICAL PRN (15:45)
[2018-01-18 17:47] LABS: Hemoglobin A1C 5.5 % (4.0-6.0)
[2018-01-18] MEDS: ATORVASTATIN 10 MG TAB PO SCH (20:58)
[2018-01-18] MEDS ORDERED: ZOLPIDEM 10 MG TAB PO PRN (21:00)
[2018-01-19] MEDS: HYDROcodone/APAP 7.5-325MG 1 EACH TAB PO PRN ×2 (03:11→11:30)
[2018-01-19] MEDS: LORATADINE 10 MG TAB PO SCH (08:29)
[2018-01-19] MEDS: LURASIDONE 40 MG TAB PO SCH (08:29)
[2018-01-19] MEDS: OXcarbazepine 300 MG TAB PO SCH ×2 (08:29→20:46)
[2018-01-19] MEDS: NICOTINE 14MG/24HR PATCH TRANSDERM SCH (08:29)
[2018-01-19] MEDS: HYDROcodone/APAP 5-325MG 1 EACH TAB PO SCH ×2 (11:40→23:31)
[2018-01-19] MEDS: LORazepam 0.5 MG TAB PO SCH ×2 (11:42→21:05)
[2018-01-19] MEDS: IBUPROFEN 800 MG TAB PO SCH ×3 (11:43→20:46)
[2018-01-19] MEDS: HALOPERIDOL 2 MG TAB PO SCH ×2 (13:41→16:02)
[2018-01-19 17:47] LABS: Amphetamine Screen,Urine Not Detected (NotDetected); Barbiturate Screen,Urine Not Detected (NotDetected); Benzodiazepines Screen,Urine Detected (NotDetected); Cocaine Screen,Urine Not Detected (NotDetected); Methadone Screen, Urine Not Detected (NotDetected); Opiate Screen,Urine Not Detected (NotDetected); Oxycodone Screen, Urine Not Detected (NotDetected); Phencyclidine Screen,Urine Not Detected (NotDetected); Tricyclic Antidepressant,Urine Not Detected (NotDetected); Urn Cannabinoid Scrn Not Detected (NotDetected)
[2018-01-19] MEDS: OLANZapine 5 MG TAB PO SCH ×2 (19:11→20:46)
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
[2018-01-19] MEDS: ATORVASTATIN 10 MG TAB PO SCH (20:46)
[2018-01-19] MEDS ORDERED: HYDROcodone/APAP 5-325MG 1 EACH TAB PO SCH (21:00)
[2018-01-19] MEDS ORDERED: traZODone HCL 100 MG TAB PO SCH (21:00)
[2018-01-20] MEDS: NICOTINE 14MG/24HR PATCH TRANSDERM SCH (08:29)
[2018-01-20] MEDS: LORATADINE 10 MG TAB PO SCH (08:30)
[2018-01-20] MEDS: IBUPROFEN 800 MG TAB PO SCH ×3 (08:30→18:37)
[2018-01-20] MEDS: OXcarbazepine 300 MG TAB PO SCH ×2 (08:30→20:10)
[2018-01-20] MEDS: OLANZapine 5 MG TAB PO SCH ×3 (08:30→20:12)
[2018-01-20] MEDS: LURASIDONE 40 MG TAB PO SCH (08:30)
[2018-01-20] MEDS: HYDROcodone/APAP 5-325MG 1 EACH TAB PO SCH ×2 (08:32→20:13)
[2018-01-20] MEDS: LORazepam 0.5 MG TAB PO SCH (08:32)
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
[2018-01-20] MEDS: BACITRACIN 500 UNIT/GM OINT 28.4 GM TUBE TOPICAL PRN (18:49)
[2018-01-20] MEDS: ATORVASTATIN 10 MG TAB PO SCH (20:10)
[2018-01-20] MEDS ORDERED: traZODone HCL 50 MG TAB PO SCH (21:00)
[2018-01-20] MEDS ORDERED: LORazepam 0.5 MG TAB PO SCH (21:00)
[2018-01-21 06:48] VITALS: TEMP 97.6
[2018-01-21] MEDS: NICOTINE 14MG/24HR PATCH TRANSDERM SCH (08:16)
[2018-01-21] MEDS: IBUPROFEN 800 MG TAB PO SCH (08:16)
[2018-01-21] MEDS: OXcarbazepine 300 MG TAB PO SCH (08:17)
[2018-01-21] MEDS: HYDROcodone/APAP 5-325MG 1 EACH TAB PO SCH (08:17)
[2018-01-21] MEDS: OLANZapine 5 MG TAB PO SCH (08:18)
[2018-01-21] MEDS: LURASIDONE 40 MG TAB PO SCH (08:18)
[2018-01-21] MEDS: LORATADINE 10 MG TAB PO SCH (08:18)
--- NOTE | 2018-01-21 08:57 | P.DS ---
Providers Date of admission: 01/17/18 14:17 Expected date of discharge: 01/21/18 Attending physician: Helio Leiva Consults: 01/17/18 15:14 Consult Physician Routine Consulting Provider: Mabel Jiménez Consult Reason/Comments: follow up H & P Do you want consulting provider notified?: Yes Primary care physician: Stated None Hospital Course: Patient had her psychiatric evaluation physical examination and psychosocial evaluation. After psychiatric evaluation, her polypharmacy and the recommended treatment for bipolar disorder were discussed with her and it was agreed to continue only Latuda and Trileptal. Other medications were discontinued her narcotics and benzos were ordered only on a when necessary basis since her drug screening was negative for narcotics and benzos and positive only for cocaine. Patient continued to do well her mood became stable and she continued to be free of suicide thoughts. We can psychiatrist for reasons not clear put her on small dose of trazodone and Zyprexa which was canceled this morning since it would amount to polypharmacy and unrecommended use of drugs for her condition and use of Zyprexa is not recommended for a person who has hyperlipidemia. Patient has been attending groups and socializing with peers and interacting with staff etc. Since she has been feeling better and feels ready to go home it was agreed to discharge her. Condition on discharge: This is a white ambulatory female with good hygiene. She is polite and cooperative. She does not show any psychomotor agitation or retardation. Her speech is spontaneous relevant and goal-directed. Her mood is mildly anxious and affect is appropriate to the thought content. She continues to deny suicide and homicide thoughts. She is well oriented with adequate memory concentration general fund of knowledge etc. Her insight and judgment seem to have improved. Diagnosis on discharge: Bipolar 1 disorder most recent episode depressed mild F 31.31. Cocaine use disorder severe F 14.20. Opioid use disorder moderate F 11.20. 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 ALLERGY to Zithromax and Medrol. ALLERGIC rhinitis. Bronchial asthma. Hyper lipidemia. Patient was advised and agreed to take her medications as prescribed not to drink alcohol or use drugs, not to drive or operate missionary if she feels sleepy, to learn better coping skills through therapy, to call her psychiatrist or therapist if she gets confused or becomes suicidal and if she cannot get hold of them to go to nearest ER Patient Condition at Discharge: Stable Plan - Discharge Summary Discharge Rx Participant: No New Discharge Prescriptions: New Acetaminophen Tab [Tylenol] 650 mg PO Q4HR PRN tab PRN Reason: MILD Pain/Discomfort Albuterol Inhaler [Ventolin Hfa Inhaler] 2 puff INHALATION RT-QID PRN 30 Days #2 puff PRN Reason: Shortness Of Breath Or Wheezing HYDROcodone/APAP 5-325MG [[place] 5-325] 1 each PO BID 2 Days #4 tab Ibuprofen [Motrin] 800 mg PO TID tab LORazepam [Ativan] 0.5 mg PO DAILY 2 Days #4 tab Continue Simvastatin [Zocor] 20 mg PO HS Lurasidone HCl [Latuda] 120 mg PO DAILY Loratadine [Claritin] 10 mg PO DAILY OXcarbazepine [Trileptal] 600 mg PO BID Discontinued traZODone HCL [Desyrel] 300 mg PO HS Escitalopram [Lexapro] 10 mg PO DAILY #30 tab oxyCODONE HCL/ACETAMINOPHEN [Percocet 10-325 mg] 1 tab PO TID PRN PRN Reason: Pain ALPRAZolam [Xanax] 1 mg PO TID PRN PRN Reason: Anxiety Discharge Medication List Simvastatin [Zocor] 20 mg PO HS 07/09/16 [History] Lurasidone HCl [Latuda] 120 mg PO DAILY 08/16/17 [History] Loratadine [Claritin] 10 mg PO DAILY 12/01/17 [History] OXcarbazepine [Trileptal] 600 mg PO BID 12/01/17 [History] Acetaminophen Tab [Tylenol] 650 mg PO Q4HR PRN tab 01/21/18 [Rx] Albuterol Inhaler [Ventolin Hfa Inhaler] 2 puff INHALATION RT-QID PRN 30 Days # 2 puff 01/21/18 [Rx] HYDROcodone/APAP 5-325MG [[place] 5-325] 1 each PO BID 2 Days #4 tab 01/21/18 [Rx] Ibuprofen [Motrin] 800 mg PO TID tab 01/21/18 [Rx] LORazepam [Ativan] 0.5 mg PO DAILY 2 Days #4 tab 01/21/18 [Rx] Follow up Appointment(s)/Referral(s): None,Stated [Primary Care Provider] - 1-2 days Patient Instructions/Handouts: Cocaine Abuse (ED) Activity/Diet/Wound Care/Special Instructions: Please return to the Emergency Department if symptoms worsen or any other concerns.
[2018-01-21] MEDS ORDERED: LORazepam 0.5 MG TAB PO SCH (09:00)
[2018-01-21 10:49] VITALS: BP 129/78; PULSE 59; RESP 16
== END 2018-01-21 13:00 | disposition home or self-care (01) | DRG 885 ==
LOC: EC 11:50 → 3MHU 14:17
PROVIDERS: ADMIT Psychiatry & Neurology Psychiatry; ATTEND Psychiatry & Neurology Psychiatry
DX: F31.31 Bipolar disorder, current episode depressed, mild (principal); F14.20 Cocaine dependence, uncomplicated; F11.20 Opioid dependence, uncomplicated; F13.20 Sedative, hypnotic or anxiolytic dependence, uncomplicated; R45.851 Suicidal ideations; G40.909 Epilepsy, unspecified, not intractable, without status epilepticus; F41.0 Panic disorder [episodic paroxysmal anxiety]; F43.10 Post-traumatic stress disorder, unspecified; J31.0 Chronic rhinitis; J44.9 Chronic obstructive pulmonary disease, unspecified; M19.91 Primary osteoarthritis, unspecified site; F17.210 Nicotine dependence, cigarettes, uncomplicated; Z71.6 Tobacco abuse counseling; E78.5 Hyperlipidemia, unspecified; Z79.899 Other long term (current) drug therapy; Z85.41 Personal history of malignant neoplasm of cervix uteri; Z87.01 Personal history of pneumonia (recurrent); Z91.410 Personal history of adult physical and sexual abuse; Z87.820 Personal history of traumatic brain injury; Z86.14 Personal history of Methicillin resistant Staphylococcus aureus infection; Z88.1 Allergy status to other antibiotic agents; Z88.8 Allergy status to other drugs, medicaments and biological substances; Z82.0 Family history of epilepsy and other diseases of the nervous system; Z83.49 Family history of other endocrine, nutritional and metabolic diseases; Z82.49 Family history of ischemic heart disease and other diseases of the circulatory system
CPT/HCPCS: 80053; 80306; 82075; 83036; 85025; 99285

== ENCOUNTER 2018-01-21 14:15 | Emergency (ER) | payer MEDICAID, MEDICARE, OTHER ==
[2018-01-21 14:28] VITALS: RESP 18
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
--- NOTE | 2018-01-21 15:23 | XR ---
EXAMINATION TYPE: XR thoracic spine complete DATE OF EXAM: 01/21/2018 CLINICAL HISTORY: pain TECHNIQUE: Frontal, lateral, and swimmer's view of thoracic spine are obtained. COMPARISON: None. FINDINGS: Thoracic spine show satisfactory alignment without evidence of acute fracture or dislocatio n. Vertebral body heights are preserved. Moderate degenerative disc space narrowing. Visualized ri bs are unremarkable. IMPRESSION: No acute fracture or dislocation is seen in the thoracic spine. ICD 10 NO FRACTURE, INIT IAL EVALUATION
[2018-01-21 16:47] LABS: Amphetamine Screen,Urine Not Detected (NotDetected); Cocaine Screen,Urine Not Detected (NotDetected); Opiate Screen,Urine Detected (NotDetected); Phencyclidine Screen,Urine Not Detected (NotDetected); Urn Cannabinoid Scrn Not Detected (NotDetected)
[2018-01-21 16:48] LABS: Barbiturate Screen,Urine Not Detected (NotDetected); Benzodiazepines Screen,Urine Detected (NotDetected); Methadone Screen, Urine Not Detected (NotDetected); Oxycodone Screen, Urine Not Detected (NotDetected); Tricyclic Antidepressant,Urine Not Detected (NotDetected)
[2018-01-21 17:37] VITALS: BP 187/95; PULSE 70; TEMP 97.1
== END 2018-01-21 17:43 | disposition home or self-care (01) ==
LOC: EC 14:15
DX: M54.2 Cervicalgia (principal); M54.9 Dorsalgia, unspecified; E78.5 Hyperlipidemia, unspecified; G40.909 Epilepsy, unspecified, not intractable, without status epilepticus; G89.29 Other chronic pain; F31.9 Bipolar disorder, unspecified; F17.200 Nicotine dependence, unspecified, uncomplicated; Z79.891 Long term (current) use of opiate analgesic; Z79.899 Other long term (current) drug therapy; Z88.1 Allergy status to other antibiotic agents; Z88.8 Allergy status to other drugs, medicaments and biological substances; Z86.14 Personal history of Methicillin resistant Staphylococcus aureus infection; V49.40XA Driver injured in collision with unspecified motor vehicles in traffic accident, initial encounter; Y93.89 Activity, other specified; Y92.410 Unspecified street and highway as the place of occurrence of the external cause
CPT/HCPCS: 70450; 72072; 72100; 72125; 80306; 82075; 99285

== ENCOUNTER 2018-02-23 11:16 | Emergency (ER) | payer MEDICARE, OTHER ==
[2018-02-23 11:33] VITALS: BP 118/56; PULSE 89; RESP 16
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
[2018-02-23 12:06] VITALS: TEMP 97
== END 2018-02-23 13:56 | disposition home or self-care (01) ==
LOC: EC 11:16
DX: F14.20 Cocaine dependence, uncomplicated (principal); F31.30 Bipolar disorder, current episode depressed, mild or moderate severity, unspecified; R45.851 Suicidal ideations; E78.5 Hyperlipidemia, unspecified; G40.909 Epilepsy, unspecified, not intractable, without status epilepticus; G89.29 Other chronic pain; F41.9 Anxiety disorder, unspecified; F17.200 Nicotine dependence, unspecified, uncomplicated; Z79.891 Long term (current) use of opiate analgesic; Z79.899 Other long term (current) drug therapy; Z88.1 Allergy status to other antibiotic agents; Z88.8 Allergy status to other drugs, medicaments and biological substances; Z86.14 Personal history of Methicillin resistant Staphylococcus aureus infection; Z81.8 Family history of other mental and behavioral disorders
CPT/HCPCS: 82075; 99284

== ENCOUNTER → 2018-03-21 | Outpatient (CLI) | payer MEDICARE, OTHER | END | disposition home or self-care (01) | LOC: LABWHC1 10:26 | DX: D35.2 Benign neoplasm of pituitary gland (principal) | CPT/HCPCS: 36415; 82565; 84520 ==

== ENCOUNTER → 2018-04-08 | Outpatient (CLI) | payer MEDICARE, OTHER ==
--- NOTE | 2018-04-08 09:41 | MR ---
EXAMINATION TYPE: MR pituitary wo/w con DATE OF EXAM: 04/08/2018 COMPARISON: 12/23/2015 HISTORY: Benign neoplasm of pituitary gland TECHNIQUE: Multiplanar, multisequence images of the brain and brainstem is performed without and with IV contras t, utilizing 7 mL intravenous Gadavist . FINDINGS: Pituitary gland measures 7.5 mm in greatest axis and appears to slightly convex upper margin. The pituitary stalk is slightly deviated to the left foot, however, there appears to be no diagnostic evidence of a pituitary microadenoma. Enhancement is fairly homogeneous. The visualized intraparenchymal structures are symmetric. Cavernous sinus enhances normally. No evide nce of a suprasellar mass. Visualized vascular signal voids are maintained. IMPRESSION: 1. Stable appearance of the pituitary gland slightly full in size without evidence of discrete microa denoma.
== END | disposition home or self-care (01) ==
LOC: RADMRIMAIN 08:09
DX: D35.2 Benign neoplasm of pituitary gland (principal)
CPT/HCPCS: 70553; A9581

== ENCOUNTER → 2018-05-13 | Outpatient (CLI) | payer MEDICARE, OTHER ==
[2018-05-13 09:10] LABS: ALT 21 U/L (9-52); AST 16 U/L (14-36); Albumin 3.8 g/dL (3.5-5.0); Alkaline Phosphatase 63 U/L (38-126); Anion Gap 6 mmol/L; Blood Urea Nitrogen 14 mg/dL (7-17); Calcium 9.2 mg/dL (8.4-10.2); Carbon Dioxide 24 mmol/L (22-30); Chloride 110 mmol/L (98-107); Cholesterol 170 mg/dL (<200); Glucose 112 mg/dL (74-99); HDL Cholesterol 57 mg/dL (40-60); LDL Cholesterol,Calculated 88 mg/dL (0-99); Potassium 4.5 mmol/L (3.5-5.1); Sodium 140 mmol/L (137-145); Total Bilirubin 0.4 mg/dL (0.2-1.3); Total Protein 6.5 g/dL (6.3-8.2); Triglycerides 124 mg/dL (<150)
[2018-05-13 09:47] LABS: HCT 48.4 % (34.0-46.0); HGB 15.4 gm/dL (11.4-16.0); MCH 30.2 pg (25.0-35.0); MCHC 31.7 g/dL (31.0-37.0); MCV 95.4 fL (80.0-100.0); Mean Platelet Volume 6.8; Platelet Count 233 k/uL (150-450); RBC 5.08 m/uL (3.80-5.40); RDW 13.1 % (11.5-15.5); WBC 6.6 k/uL (3.8-10.6)
[2018-05-13 12:19] LABS: Eosinophils # (M) 0.07 k/uL (0-0.7); Lymphocytes # (M) 3.04 k/uL (1.0-4.8); Monocytes # (M) 0.86 k/uL (0-1.0); Neutrophils # (M) 2.64 k/uL (1.3-7.7); Neutrophils % (M) 40 %; Nucleated Red Blood Cells 0 /100 WBC (0-0); Total Cells Counted 100
== END | disposition home or self-care (01) ==
LOC: LABWHC1 07:41
PROVIDERS: ATTEND Family Medicine
DX: E78.5 Hyperlipidemia, unspecified (principal); J45.20 Mild intermittent asthma, uncomplicated
CPT/HCPCS: 36415; 80053; 80061; 84443; 85025

== ENCOUNTER → 2018-05-16 | Outpatient (CLI) | payer MEDICARE, OTHER ==
--- NOTE | 2018-05-20 09:53 | MM ---
Reason for exam: screening (asymptomatic). Last mammogram was performed 1 year and 2 months ago. History: Patient is postmenopausal and has history of other cancer at age 26. Benign left US cyst aspiration of the left breast, March 06, 2007. Took estrogen for 6 months beginning at age 44. Physical Findings: A clinical breast exam by your physician is recommended on an annual basis and results should be correlated with mammographic findings. MG 3D Screening Mammo W/Cad Bilateral CC and MLO view(s) were taken. Prior study comparison: March 23, 2017, bilateral MG 3d diag mammo w/cad GINGER. March 20, 2016, bilateral MG 3d screening mammo w/cad. The breast tissue is extremely dense which could obscure a lesion on mammography. Previous mammotome biopsy in the left breast. No significant changes when compared with prior studies. ASSESSMENT: Benign, BI-RAD 2 RECOMMENDATION: Routine screening mammogram of both breasts in 1 year.
== END | disposition home or self-care (01) ==
LOC: RADMAMWWP 07:51
PROVIDERS: ATTEND Family Medicine
DX: Z12.31 Encounter for screening mammogram for malignant neoplasm of breast (principal)
CPT/HCPCS: 77063; 77067

== ENCOUNTER → 2018-11-20 | Outpatient (CLI) | payer MEDICARE, MEDICAID ==
[2018-11-20 08:57] LABS: Basophils % (A) 0 %; Eosinophils # (A) 0.1 k/uL (0-0.7); Eosinophils % (A) 3 %; HCT 47.1 % (34.0-46.0); HGB 15.3 gm/dL (11.4-16.0); Lymphocytes # (A) 1.9 k/uL (1.0-4.8); Lymphocytes % (A) 46 %; MCH 30.1 pg (25.0-35.0); MCHC 32.4 g/dL (31.0-37.0); Monocytes # (A) 0.2 k/uL (0-1.0); Monocytes % (A) 6 %; Neutrophils # (A) 1.8 k/uL (1.3-7.7); Neutrophils % (A) 43 %; Platelet Count 289 k/uL (150-450); RBC 5.07 m/uL (3.80-5.40); RDW 12.9 % (11.5-15.5); WBC 4.2 k/uL (3.8-10.6)
[2018-11-20 18:39] LABS: Albumin 4.3 g/dL (3.80-4.90); Albumin/Globulin Ratio 2.39 (1.60-3.17); Anion Gap 5.8 mmol/L (4.00-12.00); Calcium 9.5 mg/dL (8.7-10.3); Carbon Dioxide 28.2 mmol/L (21.6-31.8); Globulin 1.8 g/dL (1.6-3.3); LDL Cholesterol,Calculated 93.2 mg/dL (0.0-131.0); Potassium 4.6 mmol/L (3.5-5.5); Total Bilirubin 0.3 mg/dL (0.3-1.2); Total Protein 6.1 g/dL (6.2-8.2); VLDL Calculation 17.8 mg/dL (5.00-40.00)
== END ==
LOC: LABWHC1 08:24
PROVIDERS: ATTEND Family Medicine
DX: E78.5 Hyperlipidemia, unspecified (principal); H60.92 Unspecified otitis externa, left ear
CPT/HCPCS: 36415; 80053; 80061; 85025

== ENCOUNTER → 2019-10-01 | Outpatient (CLI) | payer MEDICARE, OTHER ==
[2019-10-01 08:35] LABS: Basophils % (A) 1 %; Eosinophils # (A) 0.1 k/uL (0-0.7); Eosinophils % (A) 2 %; HCT 46.7 % (34.0-46.0); HGB 14.5 gm/dL (11.4-16.0); Lymphocytes # (A) 1.6 k/uL (1.0-4.8); Lymphocytes % (A) 39 %; MCH 29.9 pg (25.0-35.0); MCV 96.2 fL (80.0-100.0); Mean Platelet Volume 7.3; Monocytes # (A) 0.4 k/uL (0-1.0); Monocytes % (A) 9 %; Neutrophils # (A) 1.9 k/uL (1.3-7.7); Neutrophils % (A) 46 %; Platelet Count 201 k/uL (150-450); RBC 4.85 m/uL (3.80-5.40); RDW 12.5 % (11.5-15.5); WBC 4.1 k/uL (3.8-10.6)
[2019-10-01 17:42] LABS: African American GFR (CKD) 93.5 (60.0-200.0); Albumin 4.2 g/dL (3.80-4.90); Albumin/Globulin Ratio 2.63 (1.60-3.17); Anion Gap 8.4 mmol/L (4.00-12.00); BUN/Creat Ratio 22.5 Ratio (12.00-20.00); Calcium 8.9 mg/dL (8.7-10.3); Carbon Dioxide 25.6 mmol/L (21.6-31.8); Globulin 1.6 g/dL (1.6-3.3); Non-African American GFR(CKD) 80.7 (60.0-200.0); Potassium 4.2 mmol/L (3.5-5.5); Total Bilirubin 0.3 mg/dL (0.2-1.2); Total Protein 5.8 g/dL (6.2-8.2)
== END | disposition home or self-care (01) ==
LOC: LABWHC1 08:14
PROVIDERS: ATTEND Family Medicine
DX: R63.4 Abnormal weight loss (principal)
CPT/HCPCS: 36415; 80053; 84443; 85025

== ENCOUNTER → 2019-10-01 | Outpatient (CLI) | payer MEDICARE, OTHER | END | disposition home or self-care (01) | LOC: RADMRIMAIN 07:49 | PROVIDERS: ATTEND Family Medicine | DX: Z53.9 Procedure and treatment not carried out, unspecified reason (principal) ==

== ENCOUNTER → 2019-10-02 | Outpatient (CLI) | payer MEDICARE, OTHER ==
--- NOTE | 2019-10-02 09:57 | CTL ---
EXAMINATION TYPE: CT Low Dose Lung DATE OF EXAM ORDERED: 10/02/2019 COMPARISON: None HISTORY: . Low Dose CT Lung Screening CT DLP: 48.[address] CTDI: 1.5 mGy IV CONTRAST USED: None. SCREENING VISIT: First visit COMPARISON: None. TECHNIQUE: Low dose computed tomography scan was performed through the chest at 1 millimeter thick se ctions and reconstructed images in the coronal plane at [address] DIAGNOSTIC QUALITY: Satisfactory FINDINGS: LUNG NODULES 4 mm pleural-based nodule right lower lobe medially image 176. No additional nodules earnestine ntified. LUNGS: COPD: Severity: Mild. Upper lobe emphysematous changes seen. Minimal subpleural fibrosis. Fibrosis: Severity:None Lymph nodes: None Other findings: None RIGHT PLEURAL SPACE: Effusion: None Calcification: None Thickening: None Pneumothorax: None LEFT PLEURAL SPACE: Effusion: None Calcification: None Thickening: None Pneumothorax: None HEART: Heart Size: Mildly enlarged Coronary calcification: Mild Pericardial effusion: None OTHER FINDINGS: Upper abdomen: No significant abnormality Bony thorax: Degenerative changes Supraclavicular region: No significant abnormalityOther: No significant abnormalityI IMPRESSION: Benign FOLLOW UP CT CHEST RECOMMENDATION: Follow-up screening in one year. Smoking cessation recommended. CT LUNG RAD: LUNG RAD CATEGORY 2 benign
== END | disposition home or self-care (01) ==
LOC: RADCTMAIN 09:12
PROVIDERS: ATTEND Family Medicine
DX: Z12.2 Encounter for screening for malignant neoplasm of respiratory organs (principal); F17.210 Nicotine dependence, cigarettes, uncomplicated

== ENCOUNTER → 2019-10-14 | Outpatient (CLI) | payer MEDICARE, OTHER ==
--- NOTE | 2019-10-14 12:34 | MR ---
EXAMINATION TYPE: MR cspine/lspine wo/w con DATE OF EXAM: 10/14/2019 COMPARISON: Prior cervical MRI dated 07/30/2017, lumbar MRI 07/19/2017 HISTORY: Radiculopathy TECHNIQUE: Multiplanar, multisequence images of the cervical and lumbar spine is performed without and with IV c ontrast, utilizing 6.5 mL intravenous Gadavist FINDINGS: There is motion on the exam. Cervical spine MRI: Similar findings to prior, there is multilevel spondylosis with loss of disc heig ht and signal at intervertebral levels. Anterolisthesis grade 1 C7-T1 again noted, there are endplate discogenic marrow signal changes noted at multiple levels, probable hemangioma present within the le ft aspect of T7 likely represents hemangioma. Cervical cord signal is maintained. No abnormal enhance ment following contrast menstruation. C2-3: Stable, no significant foraminal encroachment, disc herniation, or spinal stenosis. C3-4: Posterior extension endplate disc complex causes some local mass effect on the cervical cord. T here is bilateral foraminal encroachment due to uncovertebral joint hypertrophy and facet arthropathy . Moderate to severe spinal stenosis is present. C4-5: Posterior extension endplate disc complex effaces the anterior thecal sac, there is bilateral f oraminal encroachment. Mild spinal stenosis. C5-6: Posterior extension endplate disc complex is again noted causing moderate to severe central emmanuel nosis as on prior exam. Bilateral foraminal encroachment is present. C6-7: Bilateral foraminal encroachment is present. No evident disc herniation. No significant central stenosis. C7-T1: Listhesis contributes to cause some mild central stenosis. There is bilateral kyrie inal encroachment. IMPRESSION: Degenerative disc disease, multilevel foraminal encroachment, spinal stenosis is similar to prior exam. Lumbar spine MRI: Findings are similar to prior exam. Loss of disc height signal present at intervert ebral levels L4-5, L5-S1, L1-2 is endplate discogenic marrow signal change, associated spondylosis. T he conus is at T12 shows an unremarkable appearance. Lumbar vertebral bodies show stable height and a lignment, minimal retrolisthesis grade 1 L1-2, L5-S1, anterolisthesis grade 1 L4-5. L5-S1 shows posterior extension of endplate disc complex with associated posterior disc herniation ca using anterior mass effect on the thecal sac, some mild central stenosis. Facet arthropathy is presen t. Circumferential extension endplate disc complex results in bilateral foraminal encroachment. L4-5: Facet arthropathy with hypertrophy ligamentum flavum as well as posterior extension endplate di sc complex results in a trefoil appearance of the thecal sac. Circumferential extension endplate disc complex results in bilateral foraminal encroachment. L3-4: Posterior broad-based disc bulge causes mild anterior mass effect on the thecal sac. Circumfere ntial extension disc bulge encroaches somewhat on the foramina. Facet arthropathy with hypertrophy li gamentum flavum causes posterior lateral mass effect on the thecal sac. L2-3: No significant disc herniation or foraminal encroachment, no central stenosis. L1-2: Posterior extension endplate disc complex effaces the anterior thecal sac. Circumferential exte nsion endplate disc complex results in bilateral foraminal encroachment. There is no significant cent ral stenosis. IMPRESSION: Degenerative disc disease, facet arthropathy, multilevel foraminal encroachment is simila r to prior exam.
== END | disposition home or self-care (01) ==
LOC: RADMRIMAIN 08:25
PROVIDERS: ATTEND Family Medicine
DX: M48.02 Spinal stenosis, cervical region (principal); M50.30 Other cervical disc degeneration, unspecified cervical region; M51.36 Other intervertebral disc degeneration, lumbar region; M46.96 Unspecified inflammatory spondylopathy, lumbar region
CPT/HCPCS: 72156; 72158; A9585

== ENCOUNTER 2021-08-13 10:19 | Emergency (ER) | payer OTHER, MEDICARE ==
[2021-08-13 10:28] VITALS: RESP 20; TEMP 98.1
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
[2021-08-13] MEDS: KETOROLAC 15 MG/ML 1 ML VIAL IM STA (10:51)
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
[2021-08-13 11:48] VITALS: BP 108/79; PULSE 48
--- NOTE | 2021-08-13 11:53 | XR ---
EXAMINATION TYPE: XR chest 1V, XR shoulder complete RT DATE OF EXAM: 08/13/2021 COMPARISON: 02/08/2017 HISTORY: 61 years Female. STUDY INDICATION GIVEN: Difficulty breathing . TECHNIQUE: AP chest radiograph. AP internal rotation, AP external rotation Y-view right shoulder. IMPRESSION: Chest radiograph: No focal airspace disease, pneumothorax or effusion. Mild left lower lobe atelectasis. Normal cardiomediastinal silhouette. Upper lung lucencies suggest COPD/emphysema changes . No acute thoracic rib cage abnormalities. Right shoulder radiographs: Acute comminuted slightly laterally-displaced fracture of the right humeral neck. Maintained glenohum eral and acromioclavicular joint alignment. Soft tissue swelling over the right shoulder.
[2021-08-13] MEDS: ACET/COD 300 MG/30 MG STARTER PACK 6 TAB BTL PO STA (12:35)
== END 2021-08-13 12:36 | disposition home or self-care (01) ==
LOC: EC 10:19 → SUPCPDRO 10:19 → EC 12:36
DX: S42.301A Unspecified fracture of shaft of humerus, right arm, initial encounter for closed fracture (principal); J44.9 Chronic obstructive pulmonary disease, unspecified; E78.5 Hyperlipidemia, unspecified; M19.90 Unspecified osteoarthritis, unspecified site; G40.909 Epilepsy, unspecified, not intractable, without status epilepticus; F43.10 Post-traumatic stress disorder, unspecified; F31.9 Bipolar disorder, unspecified; V49.9XXA Car occupant (driver) (passenger) injured in unspecified traffic accident, initial encounter
CPT/HCPCS: 73030; 71045; 72125; 70450; 99284; 96372; J1885

== ENCOUNTER → 2021-10-26 | Outpatient (CLI) | payer MEDICARE, OTHER ==
[2021-10-26 14:53] LABS: ALT 10 U/L (8-44); AST 14 U/L (13-35); African American GFR (CKD) 110.6 (60.0-200.0); Albumin 3.6 g/dL (3.8-4.9); Albumin/Globulin Ratio 1.57 (1.60-3.17); Alkaline Phosphatase 81 U/L (41-126); BUN/Creat Ratio 18.51 Ratio (12.00-20.00); Blood Urea Nitrogen 12.2 mg/dL (9.0-27.0); Calcium 8.6 mg/dL (8.7-10.3); Carbon Dioxide 25.5 mmol/L (20.0-27.5); Chloride 102 mmol/L (96-109); Globulin 2.3 g/dL (1.6-3.3); Glucose 118 mg/dL (70-110); Non-African American GFR(CKD) 95.4 (60.0-200.0); Potassium 3.5 mmol/L (3.5-5.5); Sodium 139 mmol/L (135-145); Total Protein 5.9 g/dL (6.2-8.2)
[2021-10-26 14:54] LABS: Chol/HDL Ratio 3.49 Ratio; LDL Cholesterol,Calculated 74.1 mg/dL (0.0-131.0)
[2021-10-26 14:59] LABS: Basophils # (A) 0.02 X 10*3/uL (0.00-0.10); Basophils % (A) 0.5 %; Eosinophils # (A) 0.09 X 10*3/uL (0.04-0.35); Eosinophils % (A) 2.2 %; HCT 46.5 % (37.2-46.3); HGB 14.6 g/dL (12.0-15.0); Immature Grans, Automated 0.2 %; Lymphocytes # (A) 2.07 X 10*3/uL (0.90-5.00); Lymphocytes % (A) 49.5 %; MCH 30.1 pg (27.0-32.0); MCHC 31.4 g/dL (32.0-37.0); MCV 95.9 fL (80.0-97.0); Mean Platelet Volume 9.5 fL (9.5-12.2); Monocytes % (A) 9.6 %; NRBC Per 100 WBC 0 /100 WBCS (0.0-0.0); Neutrophils # (A) 1.59 X 10*3/uL (1.80-7.70); Platelet Count 269 X 10*3/uL (140-440); RBC 4.85 X 10*6/uL (4.10-5.20); RDW 12.7 % (11.5-14.5); WBC 4.18 X 10*3/uL (4.50-10.00)
[2021-10-26 18:37] LABS: Urine Alcohol Negative (Negative); Urine Barbiturate Negative (Negative); Urine Cocaine Positive (Negative); Urine Methadone Negative (Negative); Urine Opiates Negative (Negative); Urine Phencyclidine Negative (Negative)
== END | disposition home or self-care (01) ==
LOC: LABWHC1 07:40
PROVIDERS: ATTEND Psychiatry & Neurology Psychiatry
DX: F31.32 Bipolar disorder, current episode depressed, moderate (principal); F14.10 Cocaine abuse, uncomplicated
CPT/HCPCS: 36415; 80053; 80061; 80306; 85025

== ENCOUNTER 2022-03-11 11:24 | Emergency (ER) | payer MEDICARE, OTHER ==
[2022-03-11 11:31] VITALS: TEMP 97.6
[2022-03-11] MEDS ORDERED: FLUORESCEIN STRIPS 1 MG STRIP RIGHT EYE ONE (11:34)
[2022-03-11] MEDS ORDERED: PROPARACAINE 0.5% OPHTH DROPS 15 ML BTL RIGHT EYE STA (11:34)
--- NOTE | 2022-03-11 12:08 | ED ---
Eye Problem HPI - General Source: patient Mode of arrival: ambulatory Limitations: no limitations <Kash Mendes - Last Filed: 03/11/22 13:59> <Fercho Ball - Last Filed: 03/11/22 14:09> - General Chief complaint: Eye Problems Stated complaint: eye swelling Time Seen by Provider: 03/11/22 11:32 - History of Present Illness Initial comments: Patient is a 61-year-old female presenting with chief complaint of swollen and painful right eye that is been ongoing for the last "couple days". Patient states that when she woke up this morning the eye was swollen shut. Patient denies any trauma to the area. She denies any foreign body sensation. She denies any drainage. She is unable to open the eye. When she manually open her eyelids, she states that her vision is blurry. Patient is a poor historian. (Kash Mendes) - Related Data Home Medications Medication Instructions Recorded Confirmed Simvastatin [Zocor] 20 mg PO HS 07/09/16 01/21/18 Lurasidone HCl [Latuda] 120 mg PO DAILY 08/16/17 01/21/18 Loratadine [Claritin] 10 mg PO DAILY 12/01/17 01/21/18 OXcarbazepine [Trileptal] 600 mg PO BID 12/01/17 01/21/18 HYDROcodone/APAP 5-325MG [[place] 1 tab PO BID 01/21/18 01/21/18 5-325] Previous Rx's Medication Instructions Recorded Acetaminophen Tab [Tylenol] 650 mg PO Q4HR PRN tab 01/21/18 Albuterol Inhaler [Ventolin Hfa 2 puff INHALATION RT-QID PRN 30 01/21/18 Inhaler] Days #2 puff Ibuprofen [Motrin] 800 mg PO TID tab 01/21/18 LORazepam [Ativan] 0.5 mg PO DAILY 2 Days #4 tab 01/21/18 Allergies Allergy/AdvReac Type Severity Reaction Status Date / Time azithromycin [From Zithromax] Allergy Severe Anaphylaxis Verified 03/11/22 11:31 methylprednisolone Allergy Severe Anaphylaxis Verified 03/11/22 11:31 [From Medrol] Review of Systems ROS Other: All systems not noted in ROS Statement are negative. <Kash Mendes - Last Filed: 03/11/22 13:59> ROS Other: All systems not noted in ROS Statement are negative. <Fercho Ball - Last Filed: 03/11/22 14:09> ROS Statement: Those systems with pertinent positive or pertinent negative responses have been documented in the HPI. Past Medical History Past Medical History: Asthma, Cancer, COPD, Hyperlipidemia, Osteoarthritis (OA), Pneumonia, Seizure Disorder Additional Past Medical History / Comment(s): last seizure 1987, bradycardia, cervical cancer, vertigo, chronic low back pain History of Any Multi-Drug Resistant Organisms: MRSA Date of last positivie culture/infection: 2014 MDRO Source:: FACE/EARS Past Surgical History: Adenoidectomy, Section, Hernia Repair, Tonsillectomy Additional Past Surgical History / Comment(s): D&C, rt WRIST surgery, eye surgery Past Anesthesia/Blood Transfusion Reactions: No Reported Reaction Past Psychological History: Anxiety, Bipolar, Depression, Panic Disorder Past Alcohol Use History: None Reported Past Drug Use History: Cocaine - Past Family History Mother History Unknown: Yes Family Medical History: No Reported History Additional Family Medical History / Comment(s): Alzheimer's disease Father Additional Family Medical History / Comment(s): Heart disease, dyslipidemia, hypertension <Kash Mendes - Last Filed: 03/11/22 13:59> General Exam Limitations: no limitations General appearance: alert, in no apparent distress Head exam: Present: atraumatic, normocephalic, normal inspection Eye exam: Absent: PERRL, EOMI (Right eye is unable to look left, there is minimal movement when asking to look up, down, and right.) Pupils: Present: unequal (Right pupil is dilated and fixed) Neck exam: Present: normal inspection Respiratory exam: Present: normal lung sounds bilaterally. Absent: respiratory distress, wheezes, rales, rhonchi, stridor Cardiovascular Exam: Present: normal rhythm, bradycardia, normal heart sounds. Absent: systolic murmur, diastolic murmur, rubs, gallop, clicks Expanded Speech: Present: fluid speech Cranial nerves: EOM's Intact: Abnormal Right Psychiatric exam: Present: normal affect, normal mood Skin exam: Present: warm, dry, intact, normal color. Absent: rash <Kash Mendes - Last Filed: 03/11/22 13:59> Course Vital Signs 03/11/22 03/11/22 11:28 12:30 Temperature 97.6 F Pulse Rate 73 48 L Respiratory 22 16 Rate Blood Pressure 133/89 146/82 O2 Sat by Pulse 98 98 Oximetry Medical Decision Making - Lab Data Result diagrams: 03/11/22 12:06 03/11/22 12:06 <Kash Mendes - Last Filed: 03/11/22 13:59> - Lab Data Result diagrams: 03/11/22 12:06 03/11/22 12:06 <Fercho Ball - Last Filed: 03/11/22 14:09> - Medical Decision Making Patient is a 61-year-old female presenting with chief complaint of swollen and painful right eye that has been ongoing for the last few days. On examination the pupil is fixed and dilated, nonreactive her accommodating. Patient is unable to look to the left, eye does not go beyond midline. There is minimal movement when asking the patient to look up, down, to the right. Visual acuity is 20/40 in the left and 20/50 in the right. No foreign body or corneal abrasion seen on Wood's lamp examination. Lab work included CBC, PT/INR, CMP, troponin which are grossly unremarkable. 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 I discussed this patient and findings with my attending Dr. Ball, patient will be transferred to [facility] for further evaluation and management by neurosurgery. Patient is agreeable with this plan. (Kash Mendes) Patient was evaluated immediately with concern for either CVA or space-occupying lesion. She does admit that the symptoms have been ongoing for several days. Patient is not the best of historians. Her complaint is swelling and pain in the eye. She is unable to open the right eyelid. She has lateral extraocular movements are intact but no other extraocular movements. Her pupil is dilated. Visual acuity is 20/40 in the affected eye. She has no limb weakness. She has a CT of the brain which is negative for intracranial hemorrhage. She received a CT of the orbit as well as a CT angiogram of [place] which does show a saccular aneurysm. I discussed case with Dr. Dow covering for neuro interventional regarding the presentation and imaging findings. He will arrange for transfer to [facility]. I discussed case with the nurse practitioner covering for their service who will help arrange this transfer. (Fercho Ball) - Lab Data Lab Results 03/11/22 03/11/22 03/11/22 Range/Units 12:06 12:06 12:06 WBC 7.0 (3.8-10.6) k/uL RBC 5.39 (3.80-5.40) m/uL Hgb 16.1 H (11.4-16.0) gm/dL Hct 51.5 H (34.0-46.0) % MCV 95.6 (80.0-100.0) fL MCH 29.9 (25.0-35.0) pg MCHC 31.2 (31.0-37.0) g/dL RDW 12.4 (11.5-15.5) % Plt Count 260 (150-450) k/uL MPV 7.3 Neutrophils % 49 % Lymphocytes % 39 % Monocytes % 7 % Eosinophils % 1 % Basophils % 1 % Neutrophils # 3.4 (1.3-7.7) k/uL Lymphocytes # 2.7 (1.0-4.8) k/uL Monocytes # 0.5 (0-1.0) k/uL Eosinophils # 0.1 (0-0.7) k/uL Basophils # 0.0 (0-0.2) k/uL PT 9.9 (9.0-12.0) sec INR 0.9 (<1.2) APTT 22.7 (22.0-30.0) sec Sodium 134 L (137-145) mmol/L Potassium 4.2 (3.5-5.1) mmol/L Chloride 104 (98-107) mmol/L Carbon Dioxide 24 (22-30) mmol/L Anion Gap 6 mmol/L BUN 15 (7-17) mg/dL Creatinine 0.69 (0.52-1.04) mg/dL Est GFR (CKD-EPI)AfAm >90 (>60 ml/min/1.73 sqM) Est GFR (CKD-EPI)NonAf >90 (>60 ml/min/1.73 sqM) Glucose 114 H (74-99) mg/dL Plasma Lactic Acid Kenny (0.7-2.0) mmol/L Calcium 9.4 (8.4-10.2) mg/dL Magnesium 2.1 (1.6-2.3) mg/dL Total Bilirubin 0.7 (0.2-1.3) mg/dL AST 24 (14-36) U/L ALT 12 (4-34) U/L Alkaline Phosphatase 68 (38-126) U/L Troponin I (0.000-0.034) ng/mL Total Protein 7.5 (6.3-8.2) g/dL Albumin 4.5 (3.5-5.0) g/dL 03/11/22 03/11/22 Range/Units 12:06 12:07 WBC (3.8-10.6) k/uL RBC (3.80-5.40) m/uL Hgb (11.4-16.0) gm/dL Hct (34.0-46.0) % MCV (80.0-100.0) fL MCH (25.0-35.0) pg MCHC (31.0-37.0) g/dL RDW (11.5-15.5) % Plt Count (150-450) k/uL MPV Neutrophils % % Lymphocytes % % Monocytes % % Eosinophils % % Basophils % % Neutrophils # (1.3-7.7) k/uL Lymphocytes # (1.0-4.8) k/uL Monocytes # (0-1.0) k/uL Eosinophils # (0-0.7) k/uL Basophils # (0-0.2) k/uL PT (9.0-12.0) sec INR (<1.2) APTT (22.0-30.0) sec Sodium (137-145) mmol/L Potassium (3.5-5.1) mmol/L Chloride (98-107) mmol/L Carbon Dioxide (22-30) mmol/L Anion Gap mmol/L BUN (7-17) mg/dL Creatinine (0.52-1.04) mg/dL Est GFR (CKD-EPI)AfAm (>60 ml/min/1.73 sqM) Est GFR (CKD-EPI)NonAf (>60 ml/min/1.73 sqM) Glucose (74-99) mg/dL Plasma Lactic Acid Kenny 1.0 (0.7-2.0) mmol/L Calcium (8.4-10.2) mg/dL Magnesium (1.6-2.3) mg/dL Total Bilirubin (0.2-1.3) mg/dL AST (14-36) U/L ALT (4-34) U/L Alkaline Phosphatase (38-126) U/L Troponin I <0.012 (0.000-0.034) ng/mL Total Protein (6.3-8.2) g/dL Albumin (3.5-5.0) g/dL Disposition Time of Disposition: 14:05 Decision to Admit Reason: Admit from EC Decision Date: 03/11/22 Decision Time: 14:05 <Kash Mendes - Last Filed: 03/11/22 13:59> Is patient prescribed a controlled substance at d/c from ED?: No - Out of Hospital Transfer - Req. 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
[2022-03-11 12:13] LABS: Basophils % (A) 1 %; Eosinophils # (A) 0.1 k/uL (0-0.7); Eosinophils % (A) 1 %; HCT 51.5 % (34.0-46.0); HGB 16.1 gm/dL (11.4-16.0); Lymphocytes # (A) 2.7 k/uL (1.0-4.8); Lymphocytes % (A) 39 %; MCH 29.9 pg (25.0-35.0); MCHC 31.2 g/dL (31.0-37.0); MCV 95.6 fL (80.0-100.0); Mean Platelet Volume 7.3; Monocytes # (A) 0.5 k/uL (0-1.0); Monocytes % (A) 7 %; Neutrophils # (A) 3.4 k/uL (1.3-7.7); Neutrophils % (A) 49 %; Platelet Count 260 k/uL (150-450); RBC 5.39 m/uL (3.80-5.40); RDW 12.4 % (11.5-15.5)
[2022-03-11 12:25] LABS: ALT 12 U/L (4-34); African American GFR (CKD) >90 (>60 ml/min/1.73 sqM); Albumin 4.5 g/dL (3.5-5.0); Anion Gap 6 mmol/L; Blood Urea Nitrogen 15 mg/dL (7-17); Calcium 9.4 mg/dL (8.4-10.2); Carbon Dioxide 24 mmol/L (22-30); Chloride 104 mmol/L (98-107); Glucose 114 mg/dL (74-99); INR 0.9 (<1.2); Non-African American GFR(CKD) >90 (>60 ml/min/1.73 sqM); Partial Thromboplastin Time 22.7 sec (22.0-30.0); Prothrombin Time 9.9 sec (9.0-12.0); Sodium 134 mmol/L (137-145); Total Bilirubin 0.7 mg/dL (0.2-1.3); Total Protein 7.5 g/dL (6.3-8.2)
[2022-03-11 12:27] LABS: AST 24 U/L (14-36); Alkaline Phosphatase 68 U/L (38-126); Magnesium 2.1 mg/dL (1.6-2.3); Potassium 4.2 mmol/L (3.5-5.1)
--- NOTE | 2022-03-11 13:39 | CT ---
EXAMINATION TYPE: CT brain wo con, CT orbits w con CT DLP: 1170.6 (accession [id number]), 513 (accession [id number]) mGycm, Automated exposure control for d ose reduction was used. DATE OF EXAM: 03/11/2022 1:22 PM COMPARISON: CT orbits 03/11/2022, CTA of the head 03/11/2022, CT brain C-spine 08/13/2021. CLINICAL INDICATION:Female, 61 years old with history of Neuro deficit, acute, stroke suspected, Neur o deficits (accession [id number]), Eye swelling (accession [id number]) TECHNIQUE: Brain: Multiple axial CT images of the brain were obtained without IV contrast. Additional images of the orbits were obtained. FINDINGS: Brain: Extra-axial spaces: No abnormal extra-axial fluid collections. Ventricular system: Within normal limits Cerebral parenchyma: No acute intraparenchymal hemorrhage or mass effect. The ventura-white junction is well differentiated. Cerebellum: Unremarkable. Mass effect: No evidence of midline shift. Intracranial vasculature: 1.9 x 1.8 cm right hyperdense lesion in the region of the right cavernous s inus Soft tissues: Normal. Calvarium/osseous structures: No depressed skull fracture. Paranasal sinuses and mastoid air cells: Clear Visualized orbits: Orbital contents are intact. IMPRESSION: No acute intracranial process. 1.9 cm lesion within the right cavernous sinus consistent with an aneurysm on CTA. The orbits are unremarkable.
--- NOTE | 2022-03-11 13:51 | CT ---
EXAMINATION TYPE: CT angio COW [place] [facility] [place] CT DLP: 937.8 mGycm, Automated exposure control for dose reduction was used. DATE OF EXAM: 03/11/2022 1:38 PM COMPARISON: CT head same day. CLINICAL INDICATION:Female, 61 years old with history of neuro deficit; PHH, Neuro deficits TECHNIQUE: Axially acquired helical CT angiogram of the head was obtained with contrast utilizing 100 cc of Isovue-370 administered intravenously. MIPS were obtained. FINDINGS: No evidence of acute intracranial hemorrhage, mass effect, or midline shift. The ventricles, sulci, a nd cisterns are unremarkable. The visualized portions of the internal carotid arteries, middle cerebral arteries, anterior cerebral arteries, and posterior cerebral arteries are patent. 1.7 x 1.4 cm saccular aneurysm emanating from the cavernous portion of the right internal carotid artery. The basilar and vertebral arteries are patent. 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
[2022-03-11] MEDS ORDERED: HYDROmorphone 0.5 MG/0.5 ML SYRINGE IVP STA (14:26)
[2022-03-11 15:00] LABS: Appearance,Urine Clear (Clear); Bilirubin,Urine Negative (Negative); Blood,Urine Negative (Negative); Color,Urine Yellow; Glucose,Urine (UA) Negative (Negative); Ketones,Urine 1+ (Negative); Leukocyte Esterase,Urine Negative (Negative); Nitrite,Urine Negative (Negative); Protein,Urine Trace (Negative); Urobilinogen,Urine <2.0 mg/dL (<2.0)
[2022-03-11 15:13] VITALS: BP 146/81; PULSE 44; RESP 18
[2022-03-11 16:20] LABS: Specific Gravity,Urine >1.050 (1.001-1.035)
== END 2022-03-11 15:13 | disposition other institution (70) ==
LOC: EC 11:24
DX: I67.1 Cerebral aneurysm, nonruptured (principal); J44.9 Chronic obstructive pulmonary disease, unspecified; E78.5 Hyperlipidemia, unspecified; M19.90 Unspecified osteoarthritis, unspecified site; Z88.1 Allergy status to other antibiotic agents; Z88.8 Allergy status to other drugs, medicaments and biological substances; Z79.899 Other long term (current) drug therapy
CPT/HCPCS: 36415; 93005; 80053; 83605; 83735; 84484; 85025; 85610; 85730; 81003; 70496; 70450; 70481; 99285; 96374; J1170; Q9967

== ENCOUNTER 2022-07-15 07:15 | Emergency (ER) | payer MEDICARE, OTHER ==
[2022-07-15 07:28] VITALS: BP 113/67; PULSE 58; RESP 16; TEMP 97.9
[2022-07-15] MEDS ORDERED: OFLOXACIN 0.3% OPHTH DROPS 5 ML BOTTLE LEFT EAR ONE (08:15)
[2022-07-15] MEDS ORDERED: HYDROcodone/APAP 5-325MG 1 EACH TAB PO STA (08:15)
[2022-07-15] MEDS ORDERED: ACET/COD 300 MG/30 MG STARTER PACK 6 TAB BTL PO STA (08:19)
[2022-07-15] MEDS ORDERED: AMOXICILLIN 500MG STARTER PACK 3 CAP BTL PO STA (08:19)
[2022-07-15] MEDS ORDERED: AMOXICILLIN 875 MG TAB PO STA (08:19)
[2022-07-15] MEDS ORDERED: IBUPROFEN 600 MG STARTER PACK 4 TAB BTL PO STA (08:19)
[2022-07-15] MEDS ORDERED: AMOXICILLIN 500 MG CAP PO STA (08:24)
--- NOTE | 2022-07-15 08:30 | ED ---
ENT HPI - General Chief complaint: ENT Stated complaint: ear ache Time Seen by Provider: 07/15/22 07:35 Source: patient, RN notes reviewed Mode of arrival: ambulatory Limitations: no limitations - History of Present Illness Initial comments: This is a 61-year-old female who presents to the emergency department for left ear pain. Pain has been present for the last 2-3 days, and yesterday she started having difficulty hearing out of the ear. Denies any drainage from the ears. States that her ear is very tender to the touch as well. Denies any fevers or upper respiratory symptoms. She has had ear infections in the past, and states that this feels very similar. Denies any fevers, chills, sore throat, cough, dyspnea, chest pain, palpit ations, abdominal pain, nausea, vomiting, diarrhea, back pain, or headaches. MD complaint: ear pain Onset/Timin -: days(s) Location: L ear - Related Data Home Medications Medication Instructions Recorded Confirmed Simvastatin [Zocor] 20 mg PO HS 07/09/16 01/21/18 Lurasidone HCl [Latuda] 120 mg PO DAILY 08/16/17 01/21/18 Loratadine [Claritin] 10 mg PO DAILY 12/01/17 01/21/18 OXcarbazepine [Trileptal] 600 mg PO BID 12/01/17 01/21/18 HYDROcodone/APAP 5-325MG [[place] 1 tab PO BID 01/21/18 01/21/18 5-325] Previous Rx's Medication Instructions Recorded Acetaminophen Tab [Tylenol] 650 mg PO Q4HR PRN tab 01/21/18 Albuterol Inhaler [Ventolin Hfa 2 puff INHALATION RT-QID PRN 30 01/21/18 Inhaler] Days #2 puff Ibuprofen [Motrin] 800 mg PO TID tab 01/21/18 LORazepam [Ativan] 0.5 mg PO DAILY 2 Days #4 tab 01/21/18 Amoxicillin 500 mg PO Q8H 7 Days #21 capsule 07/15/22 Allergies Allergy/AdvReac Type Severity Reaction Status Date / Time azithromycin [From Zithromax] Allergy Severe Anaphylaxis Verified 07/15/22 07:27 methylprednisolone Allergy Severe Anaphylaxis Verified 07/15/22 07:27 [From Medrol] Review of Systems ROS Statement: Those systems with pertinent positive or pertinent negative responses have been documented in the HPI. ROS Other: All systems not noted in ROS Statement are negative. Past Medical History Past Medical History: Asthma, Cancer, COPD, Hyperlipidemia, Osteoarthritis (OA), Pneumonia, Seizure Disorder Additional Past Medical History / Comment(s): last seizure 1986, bradycardia, cervical cancer, vertigo, chronic low back pain History of Any Multi-Drug Resistant Organisms: MRSA Date of last positivie culture/infection: 2014 MDRO Source:: FACE/EARS Past Surgical History: Adenoidectomy, Section, Hernia Repair, Tonsillectomy Additional Past Surgical History / Comment(s): D&C, rt WRIST surgery, eye surgery Past Anesthesia/Blood Transfusion Reactions: No Reported Reaction Past Psychological History: Anxiety, Bipolar, Depression, Panic Disorder Smoking Status: Current every day smoker Past Alcohol Use History: None Reported Past Drug Use History: Cocaine - Past Family History Mother History Unknown: Yes Family Medical History: No Reported History Additional Family Medical History / Comment(s): Alzheimer's disease Father Additional Family Medical History / Comment(s): Heart disease, dyslipidemia, hypertension General Exam Limitations: no limitations General appearance: alert, in no apparent distress Head exam: Present: atraumatic ENT exam: Present: other (Left TM and canal erythema, tenderness with movement of the tragus.) Respiratory exam: Present: normal lung sounds bilaterally. Absent: respiratory distress, wheezes, rales, rhonchi, stridor Cardiovascular Exam: Present: regular rate, normal rhythm, normal heart sounds. Absent: systolic murmur, diastolic murmur, rubs, gallop, clicks Neurological exam: Present: alert, oriented X3, CN II-XII intact Psychiatric exam: Present: normal affect, normal mood Skin exam: Present: warm, dry, intact, normal color. Absent: rash Course Vital Signs 07/15/22 07:24 Temperature 97.9 F Pulse Rate 58 L Respiratory 16 Rate Blood Pressure 113/67 O2 Sat by Pulse 98 Oximetry Medical Decision Making - Medical Decision Making This is a 61-year-old female who presents to the emergency department for left ear pain. Physical examination consistent with an otitis media and externa. Prescription for amoxicillin provided. She was given ofloxacin eardrops in the emergency department as well as a starter pack for the amoxicillin, as she states that she is not able to get to her pharmacy right away. Dosing instructions reviewed. Advised ibuprofen and Tylenol for pain relief and recommended laying her head on warm moist heat as well. Return precautions reviewed in depth, the patient is instructed to return to the emergency department with any new, worsening, or concerning symptoms. Patient verbalized understanding. This case was discussed in detail with the attending ED physician. Presentation, findings, and treatment plan discussed in detail as well. Disposition Clinical Impression: Otitis media, Otitis externa Disposition: HOME SELF-CARE Instructions (If sedation given, give patient instructions): Ear Infection (ED) Additional Instructions: Return to the emergency department with any new, worsening, or concerning symptoms. Take the antibiotic as prescribed for 7 days. Use the eardrops as 10 drops to the left ear once daily. You can alternate with ibuprofen and Tylenol as needed for pain relief. You can also lean your head on a warm washcloth or a heating pad for additional relief Follow up with your primary care provider in 1-2 days. Prescriptions: Amoxicillin 500 mg PO Q8H 7 Days #21 capsule Is patient prescribed a controlled substance at d/c from ED?: No Referrals: None,Stated [Primary Care Provider] - 1-2 days
== END 2022-07-15 08:30 | disposition home or self-care (01) ==
LOC: EC 07:15
DX: H66.92 Otitis media, unspecified, left ear (principal); H60.92 Unspecified otitis externa, left ear; J44.9 Chronic obstructive pulmonary disease, unspecified; F17.200 Nicotine dependence, unspecified, uncomplicated; F41.9 Anxiety disorder, unspecified; F32.A Depression, unspecified; E78.5 Hyperlipidemia, unspecified; M19.90 Unspecified osteoarthritis, unspecified site; G40.909 Epilepsy, unspecified, not intractable, without status epilepticus; Z88.1 Allergy status to other antibiotic agents; Z88.8 Allergy status to other drugs, medicaments and biological substances; Z79.891 Long term (current) use of opiate analgesic
CPT/HCPCS: 99282

== ENCOUNTER 2022-11-30 07:54 | Emergency (ER) | payer MEDICARE, OTHER ==
--- NOTE | 2022-11-30 08:10 | ED ---
General Adult HPI - General Stated complaint: AMS Time Seen by Provider: 11/30/22 07:58 - History of Present Illness Initial comments: Dictation was produced using [employer] dictation software. please excuse any grammatical, word or spelling errors. Chief Complaint: 62-year-old female with extensive history of illicit drug abuse presents to the ER for altered mental status History of Present Illness: 62-year-old female she admits to using crack cocaine 30 minutes prior to arrival. Patient was visited by home health care worker for a wellness check. She was found to be crawling around on the ground. EMS was called and Patient is brought to the emergency department. Patient is well- known to EMS and law enforcement for illicit drug abuse. Patient states she smoked crack today. States that she smokes crack often. She has no complaints. States she has a chronic right facial droop. EMS reports that she is a history of cardiac arrest from drug use. The ROS documented in this emergency department record has been reviewed and confirmed by me. Those systems with pertinent positive or negative responses have been documented in the HPI. All other systems are other negative and/or noncontributory. - Related Data Home Medications Medication Instructions Recorded Confirmed Loratadine [Claritin] 10 mg PO DAILY 12/01/17 11/30/22 ALPRAZolam [Xanax] 0.75 mg PO DAILY MDD 1.5 tabs 10/23/22 11/30/22 Cariprazine HCl [Vraylar] 3 mg PO DAILY 10/23/22 11/30/22 Escitalopram Oxalate [Lexapro] 20 mg PO DAILY 10/23/22 11/30/22 Mirtazapine [Remeron] 15 mg PO HS 10/23/22 11/30/22 Omeprazole [PriLOSEC] 20 mg PO DAILY 10/23/22 11/30/22 traZODone HCL 150 mg PO HS 10/23/22 11/30/22 Albuterol Inhaler [Ventolin Hfa 1 puff INHALATION RT-QID PRN 11/30/22 11/30/22 Inhaler] Docusate [Colace] 100 mg PO DAILY 11/30/22 11/30/22 Previous Rx's Medication Instructions Recorded Clopidogrel [Plavix] 75 mg PO DAILY #30 tab 10/26/22 Furosemide [Lasix] 20 mg PO DAILY #30 tab 10/26/22 Prazosin [Minipress] 2 mg PO HS #60 cap 10/26/22 Tiotropium 2.5 Mcg/Puff [Spiriva 1 puff INHALATION DAILY #1 each 10/26/22 Respimat 2.5 Mcg] Allergies Allergy/AdvReac Type Severity Reaction Status Date / Time azithromycin [From Zithromax] Allergy Severe Anaphylaxis Verified 11/30/22 09:33 methylprednisolone Allergy Severe Anaphylaxis Verified 11/30/22 09:33 [From Medrol] Review of Systems ROS Statement: Those systems with pertinent positive or pertinent negative responses have been documented in the HPI. ROS Other: All systems not noted in ROS Statement are negative. Past Medical History Past Medical History: Asthma, Cancer, COPD, Hyperlipidemia, Osteoarthritis (OA), Pneumonia, Seizure Disorder Additional Past Medical History / Comment(s): last seizure 1986, bradycardia, cervical cancer, vertigo, chronic low back pain History of Any Multi-Drug Resistant Organisms: MRSA Date of last positivie culture/infection: 2014 MDRO Source:: FACE/EARS Past Surgical History: Adenoidectomy, Section, Hernia Repair, Tonsillectomy Additional Past Surgical History / Comment(s): D&C, rt WRIST surgery, eye surgery Past Anesthesia/Blood Transfusion Reactions: No Reported Reaction Past Psychological History: Anxiety, Bipolar, Depression, Panic Disorder Smoking Status: Current every day smoker Past Alcohol Use History: None Reported Past Drug Use History: Cocaine - Past Family History Mother History Unknown: Yes Family Medical History: No Reported History Additional Family Medical History / Comment(s): Alzheimer's disease Father Additional Family Medical History / Comment(s): Heart disease, dyslipidemia, hypertension General Exam - General Exam Comments Initial Comments: PHYSICAL EXAM: General Impression: Alert and oriented x3, not in acute distress, mildly diaphoretic HEENT: Normocephalic atraumatic, extra-ocular movements intact, pupils equal and reactive to light bilaterally, mucous membranes moist. Cardiovascular: Tachycardic Chest: Able to complete full sentences, no retractions, no tachypnea Abdomen: abdomen soft, non-tender, non-distended, no organomegaly Musculoskeletal: Pulses present and equal in all extremities, no peripheral edema Motor: no focal deficits noted Neurological: Right lower facial droop, no focal motor or sensory deficits noted Skin: Intact with no visualized rashes Psych: Restless Course Vital Signs 11/30/22 11/30/22 11/30/22 08:04 08:13 08:16 Temperature 99.9 F H Pulse Rate 96 104 H Respiratory 28 H 28 H 24 Rate Blood Pressure 144/95 140/86 O2 Sat by Pulse 94 L 95 Oximetry 11/30/22 11/30/22 09:16 09:43 Temperature Pulse Rate 100 100 Respiratory 20 24 Rate Blood Pressure 140/85 148/65 O2 Sat by Pulse 98 99 Oximetry EKG Findings - EKG Comments: EKG Findings:: My EKG interpretation: Ventricular rate 93, sinus rhythm,. Interval 92, QRS 12, QTC C C4 17. No VT prolongation, no QTC prolongation, no ST or T-wave changes noted. EKG compared to 10/23/2022 showing no changes. Overall, this EKG is unremarkable Medical Decision Making - Medical Decision Making Was pt. sent in by a medical professional or institution (, PA, PUG MACHINE OPERATOR, urgent care, hospital, or residential...) When possible be specific @ -No Did you speak to anyone other than the patient for history (EMS, parent, family, police, friend...)? What history was obtained from this source @ -EMS Did you review nursing and triage notes (agree or disagree)? Why? @ -I reviewed and agree with nursing and triage notes Were old charts reviewed (outside hosp., previous admission, EMS record, old EKG, old radiological studies, urgent care reports/EKG's, residential records)? Report findings @ -Prior pulmonology progress notes and cardiology notes were reviewed. Shows that patient had an episode of acute drug overdose with acute hypoxic respiratory failure. Differential Diagnosis (chest pain, altered mental status, abdominal pain women, abdominal pain men, vaginal bleeding, musculoskeletal, weakness, fever, dyspnea, syncope, headache, dizziness, GI bleed, back pain, seizure, CVA, palpatations, mental health)? @ -Differential Altered Mental Status: Hypoglycemia, DKA, hypercapnia, ETOH, overdose, CO poisoning, trauma, myxedema coma, HTN encephalopathy, infection, encephalitis, psychosis, intercranial hemorrhage, hepatic encephalopathy, meningitis, CVA, this is not meant to be an all-inclusive list EKG interpreted by me (3pts min.). @ -See above X-rays interpreted by me (1pt min.). @ -None done CT interpreted by me (1pt min.). @ -None done U/S interpreted by me (1pt. min.). @ -None done What testing was considered but not performed or refused? (CT, X-rays, U/S, labs)? Why? @ -None What meds were considered but not given or refused? Why? @ -None Did you discuss the management of the patient with other professionals (professionals i.e. DrRicky, PA, PUG MACHINE OPERATOR, lab, RT, psych nurse, licensed social worker, exhibit preparator, te acher, chief financial officer, case management assistant)? Give summary @ -No Was smoking cessation discussed for >3mins.? @ -No Was critical care preformed (if so, how long)? @ -No Were there social determinants of health that impacted care today? How? (Homelessness, low income, unemployed, alcoholism, drug addiction, transportation, low edu. Level, literacy, decrease access to med. care, senior care, rehab)? @ -Education level, social situation, history of drug addiction Was there de-escalation of care discussed even if they declined (Discuss DNR or withdrawal of care, Hospice)? DNR status @ -No What co-morbidities impacted this encounter? (DM, HTN, Smoking, COPD, CAD, Cancer, CVA, ARF, Chemo, Hep., AIDS, mental health diagnosis, sleep apnea, morbid obesity)? @ -Illicit drug dependence Was patient admitted / discharged? Hospital course, mention meds given and route, prescriptions, significant lab abnormalities, going to OR and other pertinent info. @ -62-year-old female brought in from home by EMS after patient was found to be altered by home health care visitor. Patient is well-appearing. She reports chronic right lower facial drooping. Patient has stable vital signs. She does have clinical presentation suspicious for mild symptom past, but it toxicity. She does admit to smoking crack just prior to arrival. Patient and motor without complications. She is tolerating oral intake. Patient at approximately 9:40 AM states that she would like to leave AGAINST MEDICAL ADVICE. Around the time of our discussion some of her labs are resulted showing acute kidney injury. She also had erythrocytosis. Erythrocytosis likely secondary to hemoconcentration from dehydration. Patient is notified of the results. She still adamantly wants to sign out AGAINST MEDICAL ADVICE. Risk and benefits are discussed patient patient told that she could have worsening symptoms which could lead to renal failure possibly even . Patient says the risks. She i s understandable at the bedside she's not showing any signs of distress. Patient signing out AMA. Undiagnosed new problem with uncertain prognosis? @ -No Drug Therapy requiring intensive monitoring for toxicity (Heparin, Nitro, Insulin, Cardizem)? @ -No Were any procedures done? @ -No Diagnosis/symptom? Acute, or Chronic, or Acute on Chronic? Uncomplicated (without systemic symptoms) or Complicated (systemic symptoms)? @ -1.Acute uncomplicated sympathomimetic toxicity secondary to recent crack use 2. Dehydration with acute kidney injury and hemoconcentration Side effects of treatment? @ -No Exacerbation, Progression, or Severe Exacerbation? @ -No Poses a threat to life or bodily function? How? (Chest pain, [place], [place], pneumonia, PE, COPD, DKA, ARF, appy, cholecystitis, CVA, Diverticulitis, Homicidal, Suicidal, threat to staff... and all critical care pts) @ -yes - Lab Data Result diagrams: 11/30/22 07:54 11/30/22 07:54 Lab Results 11/30/22 11/30/22 Range/Units 07:54 07:54 WBC 9.6 (3.8-10.6) k/uL RBC 5.57 H (3.80-5.40) m/uL Hgb 17.3 H D (11.4-16.0) gm/dL Hct 51.9 H (34.0-46.0) % MCV 93.2 D (80.0-100.0) fL MCH 31.1 (25.0-35.0) pg MCHC 33.3 (31.0-37.0) g/dL RDW 12.9 (11.5-15.5) % Plt Count 322 (150-450) k/uL MPV 7.1 Neutrophils % 86 % Lymphocytes % 9 % Monocytes % 5 % Eosinophils % 0 % Basophils % 0 % Neutrophils # 8.2 H (1.3-7.7) k/uL Lymphocytes # 0.9 L (1.0-4.8) k/uL Monocytes # 0.4 (0-1.0) k/uL Eosinophils # 0.0 (0-0.7) k/uL Basophils # 0.0 (0-0.2) k/uL Sodium 142 (137-145) mmol/L Potassium 4.4 (3.5-5.1) mmol/L Chloride 108 H (98-107) mmol/L Carbon Dioxide 20 L (22-30) mmol/L Anion Gap 14 mmol/L BUN 38 H (7-17) mg/dL Creatinine 2.17 H (0.52-1.04) mg/dL Est GFR (CKD-EPI)AfAm 27 (>60 ml/min/1.73 sqM) Est GFR (CKD-EPI)NonAf 24 (>60 ml/min/1.73 sqM) Glucose 169 H (74-99) mg/dL Calcium 9.8 (8.4-10.2) mg/dL Disposition Clinical Impression: Crack cocaine use, LENKA (acute kidney injury) Disposition: HOME SELF-CARE Condition: Good Instructions (If sedation given, give patient instructions): Cocaine Abuse (ED), Acute Kidney Injury (DC) Is patient prescribed a controlled substance at d/c from ED?: No Referrals: None,Stated [Primary Care Provider] - 1-2 days Time of Disposition: 09:48
[2022-11-30 08:17] VITALS: TEMP 99.9
[2022-11-30 08:48] LABS: Basophils % (A) 0 %; Eosinophils % (A) 0 %; HCT 51.9 % (34.0-46.0); Lymphocytes # (A) 0.9 k/uL (1.0-4.8); Lymphocytes % (A) 9 %; MCH 31.1 pg (25.0-35.0); MCHC 33.3 g/dL (31.0-37.0); Mean Platelet Volume 7.1; Monocytes # (A) 0.4 k/uL (0-1.0); Monocytes % (A) 5 %; Neutrophils # (A) 8.2 k/uL (1.3-7.7); Neutrophils % (A) 86 %; Platelet Count 322 k/uL (150-450); RBC 5.57 m/uL (3.80-5.40); RDW 12.9 % (11.5-15.5); WBC 9.6 k/uL (3.8-10.6)
[2022-11-30 08:50] LABS: Potassium 4.4 mmol/L (3.5-5.1)
[2022-11-30 08:51] LABS: Calcium 9.8 mg/dL (8.4-10.2)
[2022-11-30 08:56] LABS: HGB 17.3 gm/dL (11.4-16.0)
[2022-11-30 08:57] LABS: MCV 93.2 fL (80.0-100.0)
[2022-11-30 09:17] VITALS: PULSE 100
[2022-11-30 09:44] VITALS: BP 148/65; RESP 24
[2022-11-30 10:34] LABS: Amphetamine Screen,Urine Not Detected (NotDetected); Barbiturate Screen,Urine Not Detected (NotDetected); Benzodiazepines Screen,Urine Not Detected (NotDetected); Cocaine Screen,Urine Detected (NotDetected); Methadone Screen, Urine Not Detected (NotDetected); Opiate Screen,Urine Not Detected (NotDetected); Oxycodone Screen, Urine Not Detected (NotDetected); Phencyclidine Screen,Urine Not Detected (NotDetected); Tricyclic Antidepressant,Urine Not Detected (NotDetected); Urn Cannabinoid Scrn Not Detected (NotDetected)
== END 2022-11-30 09:54 | disposition home or self-care (01) ==
LOC: EC 07:54
DX: N17.9 Acute kidney failure, unspecified (principal); F14.90 Cocaine use, unspecified, uncomplicated; F32.A Depression, unspecified; F17.210 Nicotine dependence, cigarettes, uncomplicated; F41.9 Anxiety disorder, unspecified; J44.9 Chronic obstructive pulmonary disease, unspecified; Z88.1 Allergy status to other antibiotic agents; Z90.89 Acquired absence of other organs; Z79.899 Other long term (current) drug therapy; Z53.29 Procedure and treatment not carried out because of patient's decision for other reasons
CPT/HCPCS: 36415; 80048; 80306; 85025; 93005; 99285

== ENCOUNTER → 2023-08-30 | Outpatient (CLI) | payer MEDICARE, OTHER ==
--- NOTE | 2023-09-01 15:45 | MM ---
Reason for Exam: Screening (asymptomatic). Last mammogram was performed 5 year(s) and 4 month(s) ago. Patient History: Menarche at age 12. First Full-Term at age 23. Postmenopausal. Other cancer, age 26. Estrogen for 6 months from age 44 until age 44. 03/06/2007, Benign Cyst Aspiration on the left side. Risk Values: Briana 5 year model risk: 1.4%. NCI Lifetime model risk: 6.0%. Prior Study Comparison: 03/20/2016 Bilateral Screening Mammogram, [facility]. 03/23/2017 Bilateral Diagnostic Mammogram, [facility]. 05/16/2018 Bilateral Screening Mammogram, [facility]. Tissue Density: The breast tissue is heterogeneously dense. This may lower the sensitivity of mammography. Findings: Analyzed By CAD. The pattern is symmetrical and stable. No significant interval changes. Core marker is within the left breast. Benign spherical calcifications are within the left breast. No suspicious groups of microcalcifications, spiculated or lobular masses, architectural distortion or other secondary signs of malignancy are mammographically apparent. Overall Assessment: Benign, BI-RAD 2 Management: Screening Mammogram of both breasts in 1 year. A negative mammogram report should not preclude additional follow up of suspicious palpable abnormalities. Patient should continue monthly self breast exam. A clinical breast exam by your physician is recommended on an annual basis and results should be correlated with mammographic findings. Electronically signed and approved by: Vadim Zaragoza D.O. Radiologis
== END | disposition home or self-care (01) ==
LOC: RADMAMWWP 08:49
PROVIDERS: ATTEND Family Medicine
DX: Z12.31 Encounter for screening mammogram for malignant neoplasm of breast (principal); Z78.0 Asymptomatic menopausal state
CPT/HCPCS: 77063; 77067